=== PATIENT | female | born 1950 | race Caucasian/White ===

== ENCOUNTER → 2023-12-03 13:57 | Outpatient (REF) | payer MEDICARE, OTHER, SELFPAY | LOC: RAD 13:57 | PROVIDERS: ATTENDING PHYSICIAN Surgery; FAMILY PHYSICIAN Internal Medicine | DX: E27.8 Other specified disorders of adrenal gland (principal) | CPT/HCPCS: 74178; Q9967 ==

== ENCOUNTER 2024-09-07 23:59 | Inpatient (IN) | payer MEDICARE, OTHER, SELFPAY ==
[2024-09-07 22:34] VITALS: BP 86/57
--- NOTE | 2024-09-07 22:34 | ED.GENMED ---
History of Present Illness
General
Chief Complaint: Cardiac Symptoms
Time Seen by Provider: 09/07/24 22:32
History of Present Illness
History of Present Illness:
TIME OF INITIAL ENCOUNTER: 10:25 PM
HPI: The patient presents due to severe nausea, EMS states that she had chest discomfort earlier. She had been vomiting. EMS arrived and found evidence of inferior wall STEMI. She was given fluids prior to arrival but blood pressures have been
very low with systolics in the 80s range. 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
EXAM:
GENERAL: Critically ill in appearance
HEENT: Actively vomiting small amounts
CARDIOVASCULAR: No murmurs, normal heart rate, regular rhythm, No chest wall tenderness, poor perfusion
PULMONARY: No respiratory distress, breath sounds are clear and equal
ABDOMEN: Soft with no peritoneal signs, no tenderness
NEUROLOGIC: Fair strength all extremities, no coordination deficits
PSYCHIATRIC: Altered mental status with limited insight and judgment this time
EXTREMITIES: Nontender, no edema, moves all extremities equally
SKIN: Pale
NUMBER AND COMPLEXITY OF PROBLEMS ADDRESSED AT THE ENCOUNTER
� Chronic conditions affecting care: High blood pressure, hyperlipidemia, denies coronary artery disease
� Acute Exacerbation and/or Progression of Chronic Illness: This is an acute problem
� Differential Diagnosis includes: ACS, STEMI
AMOUNT AND/OR COMPLEXITY OF DATA TO BE REVIEWED AND ANALYZED
� I performed an independent evaluation of and my interpretation is:
EKG: EKG shows evidence of inferior wall STEMI
CT:
X-rays:
Laboratory Studies: White count normal, hemoglobin 12.3, bicarb 20, troponin 0.125
Other:
� Review of other/old records: The patient was admitted here in 2022 with appendicitis
� Clinical information was obtained by an independent historian: I spoke to the briefly upon arrival
� Prescriptions/Medications Considered but not given:
� Further testing considered but not performed:
RISK OF COMPLICATIONS AND/OR MORBIDITY OR MORTALITY OF PATIENT MANAGEMENT
� Social determinants of health affecting care: Lives at home
� Discussion with other providers: Discussed case with Dr. Jenkins; considered intubation however cardiology prefers to hold off if possible
� Escalation of care including admission/observation vs risk of discharge considered: The patient was not able to take aspirin prehospital due to active vomiting. I have ordered aspirin rectally. Cardiology, Dr. Jenkins arrived
nearly immediately after patient arrival. The patient was placed on Levophed after no significant treatment after saline. She did attempt to chew Brilinta while in the emergency department. Heparin was also ordered per cardiology. She did arrive
with palpable femoral pulses, systolic blood pressures improving after Levophed.
ANY OTHER UPDATES:
Past History
Past History
ED Past Medical History: HTN
Social History
Personal:
Living: with family
Employment: Not employed
Phy Exam
Physical Exam
Physical Exam:
See HPI
Course
Orders/Labs/Results
Orders:
Orders
09/07/24 22:27
Electrocardiogram (*1) Urgent
Reason for Study: Chest Pain
EKG- Treatment ONCE
09/07/24 22:29
Ondansetron Injectable [Zofran] 4 mg .ROUTE .STK-MED ONE
09/07/24 22:30
Complete Blood Count/With Diff Urgent
Comprehensive Metabolic Panel Urgent
HIV Combo Urgent
Hepatitis B Surface Antigen Urgent
Hepatitis C Antibody Urgent
PTT Urgent
Prothrombin Time Urgent
Troponin I Urgent
09/07/24 22:33
Aspirin 300 mg .ROUTE .STK-MED ONE
09/07/24 22:37
Type+Screen Stat
NORepinephrine 4 MG/250 ML [Levophed] 4 mg in 250 ml .ROUTE .STK-MED
09/07/24 22:38
Fentanyl Citrate/Pf [Sublimaze] See Dose Instructions .ROUTE .STK-MED ONE
Midazolam HCl [Versed] See Dose Instructions .ROUTE .STK-MED ONE
Verapamil Injectable [Isoptin/Verapamil Injection] 5 mg .ROUTE .STK-MED ONE
09/07/24 22:39
Heparin 10,000 units .ROUTE .STK-MED ONE
Heparin 1000 Units/500 ml [Heparin] 1,000 units in 500 ml .ROUTE .STK-MED
Heparin Sodium,Porcine/Ns/Pf [Heparin 2000 Units/1000 ml] 2,000 unit in 1,000 ml .ROUTE .STK-MED
Lidocaine HCl/Pf [Xylocaine-Mpf 1% Vial] 100 mg .ROUTE .STK-MED ONE
Nitroglycerin [Tridil] 1,500 mcg .ROUTE .STK-MED ONE
09/07/24 22:42
ABO2 Stat
BBK Wristband Number:
Associate notified that ABO2 has been ordered: LUIS IN ED
Date: 09/07/24
Time: 22:42
Oil Burner Journeyman ID: [id number]
09/07/24 22:44
NORepinephrine 4 MG/250 ML [Levophed] 4 mg in 250 ml IV NOW
Initial dose in mcg/min, then titrate:: 5
Titrate to keep:: MAP > 65 mmHg
Titrate by mcg/min:: 1-2 mcg/min
Frequency of titrations (minutes):: 5
Maximum dose in ICU in mcg/min:: 30
Maximum dose in IMU in mcg/min:: 8
Maximum dose in IVU in mcg/min:: 4
Begin to taper infusion when:: Remained at goal for 4hrs
Taper by mcg/min:: 1-2 mcg/min
Frequency of taper (minutes) if patient maintains goal:: 30
Taper to off?: Yes
If infusion off & no longer maintaining goal:: Contact Provider
09/07/24 22:45
DOBUTamine 500 MG/D5W 250 ML [Dobutrex 500 mg] 500 mg in 250 ml IV PER PROTOCOL
Initial dose in mcg/kg/min, then titrate:: 10
Titrate to keep:: MAP > 65 mmHg
Titrate by mcg/kg/min:: 0.5 mcg/kg/minute
Frequency of titrations (minutes):: 15
Maximum dose in mcg/kg/min:: 20
Begin to taper infusion when:: Remained at goal for 4hrs
Taper by mcg/kg/min:: 1 mcg/kg/min
Frequency of taper (minutes) if patient maintains goal:: 30
Taper to off?: Yes
If infusion off & no longer maintaining goal:: Contact Provider
09/07/24 23:01
DOBUTamine 500 MG/D5W 250 ML [Dobutrex 500 mg] 500 mg in 250 ml .ROUTE .STK-MED
09/07/24 23:07
Ondansetron Injectable [Zofran] 4 mg .ROUTE .STK-MED ONE
09/07/24 23:15
Ticagrelor [Brilinta] 180 mg .ROUTE .STK-MED ONE
09/07/24 23:16
Heparin 5,000 units .ROUTE .STK-MED ONE
09/07/24 23:19
Eptifibatide [Integrilin] 10 ml .ROUTE .STK-MED
09/07/24 23:20
EPTIFIBATIDE 75 mg/100 mL [Integrilin] 75,000 mcg in 100 ml .ROUTE .STK-MED
09/07/24 23:52
Lidocaine HCl/Pf [Xylocaine-Mpf 1% Vial] 100 mg .ROUTE .STK-MED ONE
Abnormal Lab Results
09/07/24 09/07/24 09/07/24
22:30 23:24 23:40
RBC 4.12 L 10^6/uL
(4.20-5.40)
MCHC 32.2 L g/dL
(33.0-37.0)
Absolute Lymphs (auto) 4.5 H 10^3/uL
(1.2-3.4)
Neutrophils % 35.7 L %
(42.2-75.2)
Lymphocytes % 55.2 H %
(20.5-51.1)
Chloride 111 H mmol/L
(98-107)
Carbon Dioxide 20 L mmol/L
(22-30)
BUN 21 H mg/dl
(7-17)
Glucose 153 H mg/dl
(70-99)
AST 139 H U/L
(14-36)
ALT 71 H U/L
(0-35)
Troponin I 0.125 H* ng/ml
Total Protein 5.9 L g/dl
(6.3-8.2)
Albumin 3.4 L g/dl
(3.5-5.0)
POC ACT Low Range 348 H Seconds 276 H Seconds
(116-155) (116-155)
09/07/24 22:30
09/07/24 22:30
Vital Signs
Initial and Last Documented VS:
Initial Vital Signs
Pulse Resp
42 20
09/07/24 22:31 09/07/24 22:31
Last Documented Vital Signs
Temp Pulse Resp BP Pulse Ox
98.9 F 73 18 117/96 96
09/10/24 03:00 09/10/24 03:00 09/10/24 03:00 09/10/24 03:00 09/10/24 03:00
*Critical Care Note
Total Time (30-74mins, 75-104mins- exclusive of procedures): Not Applicable
ED Attending Note
-
Portions of this chart may have been created with voice recognition software.� Occasional wrong word or��sound alike� substitutions may have occurred due to the inherent limitations of voice recognition software.
Discharge Plan
Departure
Patient Disposition: Admit
Date of Disposition: 09/07/24
Time of Disposition: 22:34
Presentation/result/management discussed w/ accepting MD/: saulo
Discharge Problem:
ST elevation (STEMI) myocardial infarction
Interventions
Interventions:
*ED COVID-19 Vaccine History Last Done: 09/08/24 01:12
*Nursing Disposition Last Done: 09/07/24 23:27
ED- Pulmonary Assessment Last Done: 09/07/24 23:19
ED- Cardiac Assessment Last Done: 09/07/24 23:19
Discharge Date and Time
Discharge Date/Time: 09/07/24 23:19
[2024-09-07 22:40] VITALS: BP 70/52
[2024-09-07 22:42] VITALS: BP 80/58
[2024-09-07 22:45] VITALS: BP 97/64
--- NOTE | 2024-09-07 22:47 | HPS.HSE ---
Family Physician
-
Family Physician: INTERVIEWE UNKNOWN - PT NOT
Chief Complaint
-
Chest pain.
History of Present Illness
74 y/o female with PMHX of tobacco abuse, SVT, chronic back pain for which she receives local injections, diastolic dysfunction and hypertension presenting with abrupt onset chest pressure, nausea and vomiting. The patient is sluggish to respond in
the emergency room and the patient's provides the majority of the history in combination with EMS. The patient was laying in bed, watching TV when she began to moan in pain. Her asked what was hurting her. She could not identify a
specific place, but said she did not feel well. She started to rise from the bed but became unstable and collapsed to the ground. It is unclear if she lost consciousness. EMS was called. Field EKG showed inferoposterior ST elevation. The cath
lab was activated.
In the ER, EKG was repeated demonstrating junctional rhythm with CANDELARIA in inferior leads and deep ST depression in the anteroseptal precordium, consistent with an inferoposterior STEMI. The patient was hypotensive and had vomited. IV fluids were
administered with minimal effect. Norepinephrine was started and was being uptitrated. The patient complained of 'chest pressure' in the ER.
The patient was last hospitalizes in 01/2023 with acute appendicitis with rupture, undergoing appendectomy complicated by SVT upon extubation. The SVT was terminated with adenosine. Home nebivolol was increased to 5 mg daily.
The patient's does not have an updated medication list, but knows that she takes losartan and has been prescribed HCTZ but does not take it due to frequent urination.
The patient was given ASA 300 mg NE, heparin 4000 units IV and asked to chew ticagrelor 180 mg. CBC is unremarkable. Coagulation panel and BMP pending.
DATA:
TTE, 02/08/2023:
CONCLUSIONS
Normal left ventricular size and systolic function. No regional wall motion
abnormalities are seen. LV ejection fraction is 55-60% by Coulter's method of
discs. Mild concentric left ventricular hypertrophy. [place] EPIQ left
ventricular global longitudinal strain is -16.9%. Stage II diastolic
dysfunction suggestive of abnormal relaxation and increased filling pressures.
Normal right ventricular size and function.
Indexed LA volume is mildly abnormal (35-41 mL/m2).
Mild mitral regurgitation.
Moderate tricuspid regurgitation. Estimated pulmonary artery pressure of 45-50
mmHg assuming a right atrial pressure of 3 mmHg.
No prior study available for comparison.
Medical History
Past Medical History
Past Medical History: Reports Arrhythmia (PSVT after appendectomy.) and HTN
Past Surgical History: Reports Appendectomy
Social History
Unable to obtain full social history at this time due to: Acuity
Tobacco: Smoker (1.5 PPD)
Alcohol: Former (Quit 5 years ago.)
Drug: None
Personal:
Living: With Family
Employment: Retired
Family History
Family History: Not pertinent
Allergies / Home Medications
Allergies reflects when Allergies were last updated in [facility].
Home Medications with original date entered in [facility]
Allergy/Medication List:
Home Medications:
Nebivolol 5 mg daily.
Losartan 25 mg daily.
HCTZ 12.5 mg daily (not taking).
Allergies:
NKDA.
Review of Systems
-
Unable to obtain full review of systems at this time due to: Acuity
History Source: Family and Ambulance Crew
Constitutional: Reports See HPI
EENT: Reports See HPI
Respiratory: Reports See HPI
Cardiac: Reports Chest Pain and Diaphoresis
Abdomen/GI: Reports Nausea and Vomiting
: Reports See HPI
Musculoskeletal: Reports See HPI
Skin: Reports No Symptoms
Neurological: Reports No Symptoms
Endocrine: Reports No Symptoms
Physical Exam
Physical Exam
General: Well Developed, Well Nourished and Appears in Distress
HEENT: NormoCephalic, Anicteric, Moist mucous membranes, Atraumatic, Good Dentition, PERRLA, [place] Conjunctivae, Nose Appears Normal, Ears Appear Normal and Neck Nontender
Respiratory: Clear and Non Labored Respirations
Cardiac: S1/S2, Regular Rhythm and Bradycardia
Breast: Deferred by me
GI: Soft, Non Tender, Non Distended and Normal Bowel Sounds
Rectal: Deferred by Provider
Genito-urinary: Deferred by me
Musculoskeletal: No Clubbing, No Cyanosis and No Edema
Skin: Other (Diaphoretic.)
Neuro: Awake, Alert and Oriented (Difficult to assess.)
Hematologic/Lymphatic: No Lymphadenopathy
Data Reviewed
-
Medical Tests (Nuc Med, Echo, EKG etc): Image Personally Visualized and interpreted, Report Reviewed by me, Discussed with Physician and Discussed with Patient
Lab Data: Labs Reviewed by me
Old Records: Reviewed
Impression/Plan
-
Impression/Plan: 74 y/o female with HTN, PSVT, chronic hip/back pain, and ongoing tobacco abuse presenting with inferoposterior STEMI complicated by junctional escape rhythm.
#STEMI
-Acute.
-STEMI plus junctional escape/complete heart block is a poor prognostic sign.
-ASA/Ticagrelor/heparin given in ER.
-Emergent cardiac catheterization/PCI.
-Situation reviewed with the patient's . Consent is signed and on the chart.
-Further instructions to follow.
#Complete heart block
-Presumably acute, due to STEMI.
-Likely placement of TPM.
-Dobutamine will assist with bradycardia.
-Re-evaluate heart rhythm post PCI.
#PSVT
-Chronic.
-Post anesthesia.
-Hold home nebivolol in the setting of junctional heart rhythm.
#Tobacco abuse
-Chronic.
-Encouraged to quit.
Critical Care Time = 55 minutes.
[2024-09-07 22:50] VITALS: BP 101/78
[2024-09-07 22:50] LABS: Hematocrit 38.2 % (37.0-47.0); Hemoglobin 12.3 g/dL (12.0-16.0); Mean Corp Hgb Conc. 32.2 g/dL (33.0-37.0); Mean Corpuscular Hgb 29.9 pg (27.0-31.0); Mean Corpuscular Volume 92.7 fL (81.0-99.0); Mean Platelet Volume 9.6 fL (7.4-10.4); Platelet Count 264 10^3/uL (130-400); Red Blood Cell Count 4.12 10^6/uL (4.20-5.40); Red Cell Dist. Width 13.3 % (11.5-14.5); White Blood Cell Count 8.1 10^3/uL (4.8-10.8)
[2024-09-07 22:53] LABS: INR 0.94; PT 12.9 Sec (11.4-14.6)
--- NOTE | 2024-09-07 22:53 | EDRN ---
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
[2024-09-07 22:54] LABS: APTT 26.2 Sec (23.4-35.0)
[2024-09-07 23:03] LABS: ALT (SGPT) 71 U/L (0-35); AST (SGOT) 139 U/L (14-36); Albumin 3.4 g/dl (3.5-5.0); Alkaline Phosphatase 100 U/L (38-126); Blood Urea Nitrogen 21 mg/dl (7-17); Calcium 8.9 mg/dl (8.4-10.2); Carbon Dioxide 20 mmol/L (22-30); Chloride 111 mmol/L (98-107); Glucose 153 mg/dl (70-99); Potassium 3.9 mmol/L (3.5-5.1); Sodium 143 mmol/L (135-145); Total Bilirubin 0.7 mg/dl (0.2-1.3); Total Protein 5.9 g/dl (6.3-8.2); eGFR > 60.00
[2024-09-07 23:11] LABS: Troponin I 0.125 ng/ml
[2024-09-07 23:16] LABS: % Basophils 1.2 % (0-2); % Eosinophils 2.7 % (0-6); % Immature Granulocytes 0.2 % (0-0.5); % Lymphocytes 55.2 % (20.5-51.1); % Neutrophils 35.7 % (42.2-75.2); Absolute Basophils 0.1 10^3/uL (0-0.2); Absolute Eosinophils 0.2 10^3/uL (0-0.7); Absolute Lymphocytes 4.5 10^3/uL (1.2-3.4); Absolute Monocytes 0.4 10^3/uL (0.1-0.6); Absolute Neutrophils 2.9 10^3/uL (1.4-6.5); Nucleated Red Blood Cells % 0 %
[2024-09-07 23:19] VITALS: BP 86/57; BMI 22.0
[2024-09-07 23:34] LABS: ACT-LR - POC 348 Seconds (116-155)
[2024-09-07 23:46] LABS: ACT-LR - POC 276 Seconds (116-155)
[2024-09-08] VITALS (41 sets, daily range): BP systolic 95–163; BP diastolic 66–125; BMI 22.0; BMI 22.5
--- NOTE | 2024-09-08 00:15 | ITS.CL.ANGIO ---
Jewel Stringer - Angioplasty
Angioplasty
Procedure Report:
CARDIAC CATHETERIZATION REPORT
Date of Procedure: 09/07/2024
Referring: Raúl Bains D.O.
INDICATION: Inferoposterior ST elevation myocardial infarction complicated by junctional escape.
PROCEDURE:
1. Temporary pacemaker placement.
2. Left heart catheterization.
3. Coronary angiography.
4. Successful aspiration thrombectomy of the mid right coronary artery.
5. Successful PCI of the mid right coronary artery.
ACCESS:
6 Micronesian right common femoral artery using modified Seldinger technique with a micropuncture kit under ultrasound guidance.
6 Micronesian right common femoral vein using a modified Seldinger technique with a micropuncture kit under ultrasound guidance.
CATHETERS:
1. 5 Micronesian JR4.
2. 5 Micronesian JL 3.5.
3. 6 Micronesian temporary pacemaker wire.
4. 6 Micronesian JR4 guiding catheter.
HEMODYNAMIC DATA
Weight (kg): 55.3
AO (s/d/x, mmHg): 153/23
LV (s/x mmHg): 153/88/114
LEFT VENTRICULOGRAPHY: Not performed.
CORONARY ANGIOGRAPHY
Dominance: Right.
Left Main: Short, bifurcating vessel. There is no coronary artery disease.
LAD: Normal size vessel giving rise to 2 diagonals. The distal vessel severely tortuous. There is no coronary artery disease.
Ramus: Congenitally absent.
Circumflex: Normal size, nondominant vessel giving rise to 2 relatively small obtuse marginals. There are minor luminal irregularities in the body of the circumflex and marginals.
RCA: Large size, dominant vessel with a large posterolateral arcade. The vessel is acutely 100% occluded in the mid vessel.
INTERVENTION(S)
1. Insertion of a temporary pacemaker.
2. Successful aspiration thrombectomy of the mid RCA, restoring CROW-3 flow.
3. Successful PCI of the acute, 100% mid RCA occlusion (Medtronic [place] 3.5 x 38 TORIBIO, postdilated with a 3.5 NC balloon) with reduction in stenosis to 0%, maintaining CROW-3 flow.
Narrative:
The patient's right inguinal area was prepped and draped and standard sterile fashion. The right inguinal crease was anesthetized with 1% lidocaine. The common femoral vein was punctured with a micropuncture needle under ultrasound guidance using
a modified Seldinger technique. Fluoroscopy confirmed satisfactory sheath position. The site was serially dilated and an 6 Micronesian sheath was inserted then sutured in place. A temporary pacemaker wire was inserted through the 6 Micronesian sheath. The
tip of the pacemaker was advanced into the apex of the right ventricle. The pacemaker was turned on at 100 bpm at 20 mA. The current was serially decreased showing good capture at 1 mA. The current was increased to 20 mA and the rate decreased to
VVI 80 bpm.
On access of the right common femoral artery, ultrasound demonstrated significant plaquing in the posterior wall of the GLUCOSE AND SYRUP WEIGHER. The artery was successfully accessed using the micropuncture needle. Right common femoral artery angiography confirmed
significant PAD in the external iliac artery. The micropuncture sheath was exchanged for a standard 6 Micronesian sheath. Unfortunately, the standard J-wire would not traverse the iliac system. A Glidewire was advanced into the descending aorta with
relative ease, allowing the diagnostic JR4 catheter access to the descending aorta. The Glidewire was exchanged for the standard J-wire and the JR4 catheter was removed. The standard 6 Micronesian sheath was withdrawn and a 23 cm 6 Micronesian sheath was
advanced over the J-wire to bypass any PAD in the iliac system. Diagnostic angiography was then performed per protocol.
After diagnostic angiography, the decision was made to proceed with percutaneous coronary intervention. The diagnostic catheter was removed over a wire and a 6Fr JR4 guiding catheter was advanced to the aortic root and seated in the right coronary
artery. Additional heparin was given and a Power Turn Flex wire was advanced into the distal RPLB.
An GANESH aspiration catheter was advanced over the power turn flex wire and into the RCA. The catheter was advanced to the mid RCA but would not progress any further. The syringe was turned to suction and several passes were made within the
proximal and mid RCA. The GANESH catheter was removed under suction and flushed showing evidence of white thrombus in the basket. Repeat angiography showed druze of CROW-3 flow in the right coronary artery. This also identified the ruptured
plaque lesion in the mid RCA
The mid RCA lesion was predilated with a 2.0 x 12 semi-compliant balloon to 12 alfie. This demonstrated good release, but we felt that further predilation was warranted. A 3.0 x 20 semicompliant balloon was advanced and the mid RCA was predilated to
12 alfie. The semi-compliant balloon was removed and a Medtronic [place] 3.5 x 38 drug-eluting stent was advanced. The stent was deployed at 12 atmospheres. The stent balloon was removed.
Post stent angiography showed a mild haziness distal to the stented artery. The artery was somewhat tortuous so there was concern for edge dissection versus partial geographic miss versus wire bleeding of the artery. The soft part of the wire was
pulled back into the crux of the vessel and angiography was performed. This demonstrated that the artery had resumed its tortuous state and the haziness was no longer observed, confirming that the lesion was, in fact, bleeding from wire bias. The
wire was readvanced.
A 3.5 x 20 noncompliant balloon was advanced into the stent and the distal stent was postdilated to 15 atmospheres. The mid stent was postdilated to 16 alfie. The proximal stent was postdilated to 18 alfie. The noncompliant balloon was withdrawn.
Angiography was performed in orthogonal views, confirming good stent expansion and an excellent angiographic result. The coronary wire was withdrawn and the guide was disengaged from the artery. The catheter was removed over a standard J-wire.
Given the patient's hypotension and need for vasopressor agents as well as her chronotropic instability, the decision was made to suture both the femoral sheaths in place to serve as pressure monitors and access for blood draws as well as to
maintain the temporary pacemaker wire position.
Closure Device: None, both the arterial and venous sheaths were sutured in place.
Radiation (mGy): 468.71
DAP (cm2.Gy): 38.8138
Fluoroscopy time (minutes): 9.7
Sedation time (minutes): 0
CONCLUSIONS
1. Inferoposterior ST elevation myocardial infarction with complete heart block manifesting as a junctional escape rhythm.
2. Right dominant circulation with luminal irregularities in the nondominant circumflex and an acute, 100% occlusion of the mid RCA, status post aspiration thrombectomy and successful PCI (Medtronic [place] 3.5 x 38 TORIBIO, postdilated with a
3.5 NC balloon) with reduction in stenosis to 0%, restoring CROW-3 flow.
3. Moderately elevated filling pressures (LVEDP = 23 mmHg at 55.3 kg).
4. At least moderate peripheral arterial disease seen on right common femoral artery ultrasound and angiography.
RECOMMENDATIONS:
1. Expectant management after cardiac catheterization via right common femoral approach.
2. Limited weight bearing for one week.
3. Maintain arterial and venous access for hemodynamic monitoring and chronotropic support if indicated.
4. Maintain eptifibatide drip at 2 mcg/kg/min for 18 hours.
5. Dual antiplatelet therapy with aspirin and ticagrelor for at least 12 months, followed by aspirin indefinitely.
6. Slow wean of norepinephrine and dobutamine to maintain MAP >65 mmHg.
7. Aggressive secondary prevention with high-dose, high potency statin.
8. Echocardiogram ordered and pending.
9. Reevaluation of heart rhythm post PCI.
10. Guideline directed medical therapy as hemodynamics and heart rhythm will permit.
11. Referral to cardiac rehab.
Copy to: Rashad Abreu M.D., Raúl Bains D.O.
[place], , FACC, FACP
--- NOTE | 2024-09-08 00:30 | PTCARENOTE ---
Monitor handoff not completed on worklist because pt came over on the cardiac cath tech zoll monitor. Pt hooked up to our CVICU X3 monitor upon arrival to room.
--- NOTE | 2024-09-08 00:45 | PTCARENOTE ---
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 Pt AAOx3. Following commands appropriately. Pt A-fib on the tele monitor. HR 100s. BP 150-70s/80s. Temporary pacemaker set to VVI 80/20. Palpable pulses throughout. Pt on 3 L NC. POX 96-100%. Lung sounds
audible throughout. Deep breathing encouraged. Abdomen soft/nontender. Hypoactive BS. Pt c/o nausea - see MAR. No emesis at this time. Right fem venous sheath w/ temp pacer C/D/I. Right fem arterial sheath C/D/I and transduced to a-line cable on the
monitor. Right DP pulse palpable. Right LE warm & no edema present. Right AC 20 gauge and Left AC 20 gauge C/D/I. Upon arrival, Levo/Integrilin/Dobutamine infusing. See worklist for full nursing assessment and interventions.
[2024-09-08] MEDS: LEVOPHED 250 IV (00:59)
[2024-09-08] MEDS: NSS 500 VEN SHEATH (01:00)
[2024-09-08] MEDS: TIGAN 200 MG IM (01:11)
[2024-09-08] MEDS: PERCOCET 5/325 1 TABLET PO (01:54)
[2024-09-08 02:20] LABS: Hepatitis B Surface Antigen Negative (Negative)
[2024-09-08 02:29] LABS: HIV Combo Negative (Negative)
[2024-09-08 02:37] LABS: Hepatitis C Antibody Negative (Negative)
--- NOTE | 2024-09-08 03:28 | PTCARENOTE ---
Bloody drainage noticed on Right Fem sheath dressing. CTPA Anthony notified and at bedside. Dressing not changed at this time. Pacer backup rate lowered to 70 by CTPA. Pt instructed to keep leg straight.
[2024-09-08] MEDS: APRESOLINE 5 MG IV (04:41)
[2024-09-08 05:05] LABS: Hematocrit 34.1 % (37.0-47.0); Hemoglobin 11.2 g/dL (12.0-16.0); Mean Corp Hgb Conc. 32.8 g/dL (33.0-37.0); Mean Corpuscular Hgb 29.9 pg (27.0-31.0); Mean Corpuscular Volume 91.2 fL (81.0-99.0); Mean Platelet Volume 9.7 fL (7.4-10.4); Platelet Count 238 10^3/uL (130-400); Red Blood Cell Count 3.74 10^6/uL (4.20-5.40); Red Cell Dist. Width 13.3 % (11.5-14.5)
--- NOTE | 2024-09-08 05:05 | PTCARENOTE ---
Pt reassessed. Pt between SR/ accelerated junctional on the tele monitor w/ occasional V-pacing. Temporary pacer set to 70/20/0.8. BP 140s-160s/80s. 5 mg IV hydralazine administered as ordered for sustained high BPs. Last cuff BP 102/70. Pt on 3 L
NC. POX 99-100%. Right venous sheath and right arterial sheath intact. Bloody drainage on right groin dressing. CTPA aware. Site is soft. No hematoma. Right DP pulse palpable. Right LE warm. Right fem a-line leveled, zeroed, and flushed. Integrilin
infusing as ordered. Pt educated on bedrest and importance of keeping right leg straight. Call anderson within reach.
[2024-09-08 05:30] LABS: Blood Urea Nitrogen 18 mg/dl (7-17); Calcium 8.7 mg/dl (8.4-10.2); Carbon Dioxide 20 mmol/L (22-30); Chloride 109 mmol/L (98-107); Estimated Creatinine Clearance 66 ml/min; Glucose 145 mg/dl (70-99); Sodium 138 mmol/L (135-145); eGFR > 60.00
[2024-09-08] MEDS: INTEGRILIN 100 IV (08:27)
[2024-09-08] MEDS: BRILINTA 90 MG PO ×2 (08:30→20:46)
[2024-09-08] MEDS: LOW STRENGTH ASPIRIN 81 MG PO (08:30)
--- NOTE | 2024-09-08 08:51 | PTCARENOTE ---
assumed care of pt from previous shift RN, sinus rhythm on tele, + peripheral pulses, pt denies CP or SOB, lungs diminished. +bs, denies nausea, voids spontaneously, purewick in place. Right FVS w pacing wire in place, RFA maintained to pressure
bag, positional at times. PIV x2 flush easily. Integrilin infusing as ordered until 1800pm. Call anderson system and safety precautions reviewed w the pt and questions encouraged. Family updated.
--- NOTE | 2024-09-08 09:43 | W.PN.CARDCBS ---
Addendum entered and electronically signed by Deng Ford MD 09/08/24 11:56:
74-year-old woman with history of SVT admitted last night with inferior posterior MA complicated by junctional rhythm and inotropic dependence with temporary pacing.
PMH: SVT, hypertension, hypercholesterolemia
PSH: Appendectomy
SH: History of tobacco abuse, ongoing, negative alcohol, , retired
Allergies: None, though statin intolerant
Outpatient meds: Nebivolol, Zetia
Current meds: Dobutamine, Integrilin, aspirin 81 mg a day, ticagrelor, atorvastatin 80 mg daily, norepinephrine
128/81, pulse 86, respiratory 16, afebrile, ecchymoses on face following fall, no acute distress, lungs are clear, occasional extrasystoles, heart rate 80s, no obvious murmurs abdomen benign, pulses diminished in feet but perfusion is good, small
amount of bleeding around catheter insertion right femoral, threshold for pacer is 7 mA, sensing not tested, no failure to sense on monitor, no VT, neuro nonfocal
EKG today: Junctional or low atrial rhythm, inferior T wave inversions with preservation of R wave, lateral ST segment depression, RSR prime hemoglobin 11. 2, white count 11, BUN/creatinine 18 and 0.6, potassium 4, AST 139, ALT 71, peak troponin
21.3
Impression:
Admitted with acute MA 09/07/24
CAD s/p 3.5 mm [place] TORIBIO mid RCA 09/07/24
Cardiogenic shock
on Levophed and Dobutamine post-cath, weaned off 09/08/24Complete heart block 09/07/24, back in NSR 09/08/24
s/p temp wire placement 09/07/24Paroxysmal Afib
h/o SVT at time of extubation in 2022
HTN
HLD with prior statin/Zetia intolerance
anxiety
Smoker
Hyperglycemia and prediabetes
Plan:
Overall doing relatively well following RCA distribution MA complicated by heart block and hypotension from RV infarction, with improvement in RV function and no evidence of hemodynamic embarrassment at present and no evidence of heart block at
present.
Appreciate efforts of Dr. Louis.
Will await chest x-ray and echo. Chest x-ray to assess position of pacing wire.
Integrilin to continue until 6 PM. Will remove sheaths in a.m.
Will uptitrate GDMT as hemodynamics permits.
Patient will likely need PCS K9 inhibitor. Intolerant of statins in the past.
Original Note:
Today's Communication / Plan
-
Possibly pulling temp wire today and sheaths later today vs tomorrow
Integrilin infusing until 1800 today
Afib post-PCI, watch for recurrence, consider switching to heparin gtt or DOAC once Integrilin done
Off Dobut and Levo, consider adding low dose Lopressor 12.5 mg q 6 hours
Impression / Plan
-
Primary Coater Smoking Pipe: unknown, previously evaluated in [place]
PCP: Dr. Marty Abreu [phone]
Impression:
Admitted with acute MA 09/07/24
CAD s/p 3.5 mm Cruz TORIBIO mid RCA 09/07/24
Cardiogenic shock
on Levophed and Dobutamine post-cath, weaned off 09/08/24
Complete heart block 09/07/24, back in NSR 09/08/24
s/p temp wire placement 09/07/24
Paroxysmal Afib
h/o SVT at time of extubation in 2022
HTN
HLD with prior statin/Zetia intolerance
anxiety
Smoker
Hyperglycemia and prediabetes
Echo 02/08/23: EF 55%, mild MR, mod TR, PA 45-50
Echo 09/08/24: Study pending
Plan:
-Patient came to [facility] via EMS with chest pain and was admitted with acute IWMI and CHB. Patient was taken urgently to the cath lab tech and had temp wire placed and then cath which showed a 100% mid RCA occlusion that was treated with thrombectomy then
PTCA and 3.5 mm TORIBIO. Patient with cardiogenic shock and was on Levo and Dobut overnight, but able to be weaned off 09/08/24 AM. Patient is now in NSR as well.
-Patient previously seen by DCA in 2022 when she had SVT after extubation at time of appendectomy so DCA taking over her care and orders placed in [facility].
-Tele reviewed by me, appears to be in NSR. Temp wire remains in place. Will investigate the possibility of removing wore 09/08/24.
-Integrilin infusion started at 0000 and will be done at 1800 on 09/08/24.
-Right groin sheaths in place, will look to remove 09/08/24 vs 09/09/24.
-Bedside echo planned for 09/08/24 AM. EF was 55% in 2022.
-Cardiogenic shock on admission has improved and patient is now off of Dobut and Levo.
-Patient was taking nebivolol 5 mg daily prior to admission. Consider transition to Lopressor 12.5 mg q 6 hours while temp wire is still in place.
-Consider adding lisinopril pending echo report, Cre is stable at 0.8
-New to aspirin and Brilinta, will ask CM to check on cost.
-Integrilin infusion ends at 1800 on 09/08/24.
-Patient with Afib in RVR post-PCI. Consider starting Heparin gtt vs direct transition to Eliquis post-sheath removal and at the end of Integrilin infusion.
-If starting NOAC then will need to consider changing DAPT to Plavix.
-HgbA1c 6%, she has prediabetes. Will consult DM RETURN CLERK and dietary for low carb diet instructions.
-CVE order placed by me. New to atorvastatin 80 mg daily. Outpatient dose of Zetia 10 mg daily has been stopped for now.
-Trend Troponin, up to 21.3 on 09/08/24 AM
-Cardiac rehab consulted
-Patient tells me that she lives in [place] and also has a home locally that she lives in with her ex-, but they still live together. Sounds like additional family is on their way and will be happy to update any family in room throughout the
day.
Progress Note - Coater Smoking Pipe
Subjective
Date of Service: September 08, 2024
Denies chest pain
Objective
Labs:
09/08/24 04:51
09/08/24 04:51
Labs
Hgb 11.2 g/dL (12.0-16.0) L 09/08/24 04:51
Hct 34.1 % (37.0-47.0) L 09/08/24 04:51
Plt Count 238 10^3/uL (130-400) 09/08/24 04:51
PT 12.9 Sec (11.4-14.6) 09/07/24 22:30
INR 0.94 09/07/24 22:30
APTT 26.2 Sec (23.4-35.0) 09/07/24 22:30
Sodium 138 mmol/L (135-145) 09/08/24 04:51
Potassium 4.0 mmol/L (3.5-5.1) 09/08/24 04:51
BUN 18 mg/dl (7-17) H 09/08/24 04:51
Creatinine 0.6 mg/dL (0.6-1.0) 09/08/24 04:51
Glucose 145 mg/dl (70-99) H 09/08/24 04:51
Troponins
09/07/24 09/08/24 09/08/24
22:30 01:16 04:51
Troponin I 0.125 H* 2.190 H* D 21.300 H* D
Vital Signs and I&O:
Vital Signs
Temp Pulse Resp BP Pulse Ox
98.2 F 86 16 128/81 100
09/08/24 08:00 09/08/24 08:00 09/08/24 08:00 09/08/24 08:00 09/08/24 08:00
Vital Signs
Temp Pulse Resp BP Pulse Ox
98.2 F 86 16 128/81 100
09/08/24 08:00 09/08/24 08:00 09/08/24 08:00 09/08/24 08:00 09/08/24 08:00
Intake & Output
09/06/24 09/07/24 09/08/24 09/09/24
06:59 06:59 06:59 06:59
Intake Total 240.6 / 279.6 78 / 78
Output Total 200 / 200
Balance 240.6 / 279.6 -122 / -122
Physical Exam
Physical Exam
GEN: NAD. AAO to person, place and situation, knows she is in a hospital in [place] and that she had an MA
HEENT: EOMI, MMM
LUNGS: No audible wheeze
CV: SR on tele
ABD: ND
EXT: No edema
NEURO: Gross non-focal
SKIN: No rash
--- NOTE | 2024-09-08 11:50 | PTCARENOTE ---
VSS, integrilin maintained, RFV and RFA sheaths maintained w pacing wire floated. Family at bedside.
[2024-09-08 12:45] LABS: HDL Cholesterol 57 mg/dl; LDL Cholesterol, Calculated 142 mg/dl; Total Cholesterol 218 mg/dl (50-199); Triglyceride 98 mg/dl (10-149); Very Low Density Lipoprotein 19 mg/dl (0-30)
--- NOTE | 2024-09-08 14:26 | W.PN.UPDATE ---
Update Note
Progress Note Update
Talked with patient's and daughter in the room. Patient intermittently confused, no focal signs, no change in vision or lateralizing weakness. No FAIRCHILD. Family reports that patient is very sharp as an outpatient, but has been intermittently
confused here, she forgot her middle name as an example, but then remembered she has an epidural injection scheduled for tomorrow. Check non-contrast CT head. Will work to get sheaths removed to make transport easier. Reviewed hospital course
overnight and plans for eventual medical therapy and cardiac rehab. Offered nicotine patch and patient declined, smokes 1.5 ppd at home. 31 min in face to face, care coordination and chart prep.
[2024-09-08] MEDS: TYLENOL PO (15:00)
[2024-09-08 16:35] LABS: ACT-LR - POC 124 Seconds (116-155)
[2024-09-08] MEDS: NSS VEN SHEATH (16:52)
--- NOTE | 2024-09-08 16:57 | PTCARENOTE ---
pt w intermittent confusion, attempting to get OOB, refusing to keep leg straight. Family at bedside and seems to be escalating pt's agitation. Asked family to leave. [facility]iology at bedside[facility]. Pacing wire removed by
[place]. Transported pt for CT of the head. Originally attempted medsitter, however, pt was made a 1:1 to ensure saftey with sheaths and pacing wire. Plan of care reviewed w the pt's family. Emotional support provided.
--- NOTE | 2024-09-08 17:11 | CM ---
spoke with pt in room, answered questions. pt is prev indep, lives with him in a 2 story home with 3 steps to enter. she is prev indep.. plan is home when medically stable. cm following for dc planning needs.
--- NOTE | 2024-09-08 17:13 | CM ---
priced brilinta with pts [facility]- her cost is $103.44/month. pt not able to discuss affordability at this time, cm to speak to family in am.
--- NOTE | 2024-09-08 17:27 | PTCARENOTE ---
sheaths removed by CCL.
[2024-09-08] MEDS: TYLENOL 650 MG PO (17:48)
[2024-09-08] MEDS: LIPITOR 80 MG PO (17:53)
--- NOTE | 2024-09-08 20:48 | PTCARENOTE ---
Assumed care of pt from dayshift RN. Walking rounds completed. Pt oriented to person and time. Pt is confused on where she is. Pt believes she is in her home. Pt is impulsive and forgetful. Pt having trouble following commands and laying flat s/p
right groin sheath removal. Pt is SR on the tele monitor w/ PACs. HR 80s. BP 95/80. MAP 84. Palpable pulses throughout. No edema noted. Pt on RA. POX 96%. Lung sounds diminished. Deep breathing encouraged. Abdomen soft/nontender. +BS. Pt voiding
yellow urine w/ pure wick catheter in place. Right groin sheath site intact/soft. No hematoma at this time. Right/Left AC 20 gauge C/D/I. Pt on bedrest s/p right groin sheath removal. Pt informed on importance of keeping right leg flat. Pt currently
a 1 to 1 w/ nurse in the room to redirect pt. See worklist for full nursing assessment and interventions.
--- NOTE | 2024-09-08 22:31 | W.PN.UPDATE ---
Update Note
Progress Note Update
Cardiology update note:
-Called by nurse to assess above patient
-Pt noted to be confused (alert and oriented x 2, not oriented to place), agitated and combative
-Tells me she smokes and has a craving for cigarettes
-Will give Ativan 0.5 mg IV now, HR NSR @ 99 bpm, BP 133/72, O2 sats 97% on RA. Will place on 2L NC overnight after Ativan
-Will cont. to closely monitor, Dr. Ford updated
[2024-09-08] MEDS: ATIVAN 0.5 MG IV (22:36)
[2024-09-08] MEDS: NSS (PRESERVATIVE FREE) 0.25 ML IV (22:37)
[2024-09-08] MEDS: HALDOL 1 MG IV (23:07)
--- NOTE | 2024-09-08 23:18 | PTCARENOTE ---
Pt w/ increased restlessness and confusion. Pt believes she is in her home but is oriented to person and time. Pt sinus rhythm to sinus tach. HR 90-120s. BPs 140s-150s/ 70-90s. Respirations 20-30. Pt difficult to redirect. Cards and CTPA aware.
Ativan and Haloperidol ordered - see DEC. Pt placed on 2 L NC. POX 98%. Right fem sheath site C/D/I. No hematoma.
[2024-09-09] VITALS (8 sets, daily range): BP systolic 124–160; BP diastolic 68–93; BMI 21.5
--- NOTE | 2024-09-09 04:13 | PTCARENOTE ---
Pt SR on the tele monitor. HR 60-80s. Pt on 2 L NC. POX 98-100%. Pt sleeping in bed at this time. Right groin sheath site C/D/I. No hematoma.
[2024-09-09 06:32] LABS: Hematocrit 32.5 % (37.0-47.0); Hemoglobin 10.5 g/dL (12.0-16.0); Mean Corp Hgb Conc. 32.3 g/dL (33.0-37.0); Mean Corpuscular Hgb 29.7 pg (27.0-31.0); Mean Corpuscular Volume 92.1 fL (81.0-99.0); Mean Platelet Volume 10.1 fL (7.4-10.4); Platelet Count 234 10^3/uL (130-400); Red Blood Cell Count 3.53 10^6/uL (4.20-5.40); Red Cell Dist. Width 13.6 % (11.5-14.5); White Blood Cell Count 12.4 10^3/uL (4.8-10.8)
--- NOTE | 2024-09-09 06:37 | PTCARENOTE ---
Pt SR to sinus tach on tele monitor. HR 80-100s. BP 150/93. Right groin sheath site C/D/I. No hematoma at this time. Pt is oriented to person and time however still believes she is in her home and not the hospital. Labs drawn and sent. EKG obtained.
Bed weight obtained. Pt turned and repositioned in bed.
[2024-09-09 07:00] LABS: ALT (SGPT) 130 U/L (0-35); AST (SGOT) 218 U/L (14-36); Albumin 3.7 g/dl (3.5-5.0); Alkaline Phosphatase 109 U/L (38-126); Blood Urea Nitrogen 18 mg/dl (7-17); Calcium 9.5 mg/dl (8.4-10.2); Carbon Dioxide 25 mmol/L (22-30); Chloride 107 mmol/L (98-107); Direct Bilirubin 0.1 mg/dl (0.0-0.4); Estimated Creatinine Clearance 66 ml/min; GGTP 102 U/L (12-43); Glucose 129 mg/dl (70-99); Magnesium 1.7 mg/dl (1.6-2.3); Potassium 3.9 mmol/L (3.5-5.1); Sodium 141 mmol/L (135-145); Total Bilirubin 1.8 mg/dl (0.2-1.3); Total Protein 6.1 g/dl (6.3-8.2); eGFR > 60.00
--- NOTE | 2024-09-09 07:30 | PTCARENOTE ---
Pt received from outgoing RN, pt resting in bed, RN was given report the pt had a restless night, confused throughout the night, impulsive and require continuos monitoring and redirecting for pt safety. Pt at change of shift resting in bed, NSR,
vss, RA, Rt Groin dressing cdi, +pulses on RLE DP. RN will continue to monitor pt safety.
[2024-09-09] MEDS: MAGNESIUM SULFATE 100 IV (08:28)
[2024-09-09] MEDS: LOW STRENGTH ASPIRIN 81 MG PO (08:29)
[2024-09-09] MEDS: BRILINTA 90 MG PO ×2 (08:29→19:46)
--- NOTE | 2024-09-09 09:03 | W.PN.CARDCBS ---
Addendum entered and electronically signed by Deng Ford MD 09/09/24 19:00:
74-year-old woman with history of SVT admitted last night with inferior posterior OR complicated by junctional rhythm and inotropic dependence with temporary pacing.
Sheathes discontinued last night, major issue at present is confusion, although at present she is oriented to place which was not the case previously. She has pain in her back and weakness in her legs. Gait was shuffling, no complaints of upper
extremity weakness. She had been scheduled for an epidural injection this week. She has apparently seen a all purpose clerk and braces had been recommended for her legs.
PMH: SVT, hypertension, hypercholesterolemia
PSH: Appendectomy
SH: History of tobacco abuse, ongoing, negative alcohol, , retired
Allergies: None, though statin intolerant
Outpatient meds: Nebivolol, Zetia
Current medications: Aspirin 81 mg a day, Brilinta 90 mg twice daily, atorvastatin 80 mg daily
136/68, pulse 82, respirate 18, afebrile, conversant, no acute distress, head neck exam notable for ecchymoses on chin, lungs are relatively clear, she has an MR murmur and possibly a TR murmur, JVD is okay abdomen is benign no edema pulses intact,
right groin intact, neuro is notable for leg weakness bilaterally, upper extremities intact
Echo: EF 64%, moderate MR, mild AI, moderate to severe TR, pulmonary artery pressure 30-35 mmHg
Peak troponin was 35.7, hemoglobin is 10.5 BUN and creatinine are 18 and 0.6
EKG today sinus tachycardia, inferior T wave inversions, anterior ST depression probably consistent with posterior myocardial infarction large R wave in V2
Plan:
From the standpoint of inferior posterior OR, she is actually doing fairly well.
Her LVEF is preserved. I suspect her mitral regurgitation and tricuspid regurgitation are related to her RCA infarction and may well improve over time.
She is relatively tachycardic without evidence of ventricular tachycardia. Add beta-miguel no evidence of heart block. Temporary pacing wire has been discontinued.
She has a history of SVT in 2022 but no documented A-fib. We will need to observe closely for recurrences of atrial fibrillation.
She does not require pressor or inotropic support
Suspect she has a toxic metabolic encephalopathy possibly with underlying cognitive impairment. This seems to be improving.
Suspect she has spinal stenosis accounting for her leg weakness. No real upper extremity weakness. Consult neuro.
Will ask hospitalist to manage noncardiac issues.
Original Note:
Today's Communication / Plan
-
continue asa, brilinta, lipitor
follow on tele. may need OP laboratory monitor
add toprol
follow LFTs
neurology consult
transfer to hospitalist service given confusion/agitation
ok for transfer to IVU
Impression / Plan
-
Primary Preschool Paraprofessional: unknown, previously evaluated in [place]
PCP: Dr. Marty Abreu [phone]
Impression:
Admitted with acute OR 09/07/24
CAD s/p 3.5 mm [place] TORIBIO mid RCA 09/07/24
Cardiogenic shock
on Levophed and Dobutamine post-cath, weaned off 09/08/24
Complete heart block 09/07/24, back in NSR 09/08/24
s/p temp wire placement 09/07/24
Paroxysmal Afib
h/o SVT at time of extubation in 2022
HTN
HLD with prior statin/Zetia intolerance
anxiety
Smoker
Hyperglycemia and prediabetes
Echo 02/08/23: EF 55%, mild MR, mod TR, PA 45-50
Echo 09/08/24: EF 64%, moderate MR, mild AR, moderate to severe TR
Plan:
-Patient came to [facility] via EMS with chest pain and was admitted with acute IWMI and CHB. Patient was taken urgently to the computer lab assistant and had temp wire placed and then cath which showed a 100% mid RCA occlusion that was treated with thrombectomy then
PTCA and 3.5 mm TORIBIO. Patient with cardiogenic shock and was initially on Levo and Dobut, but able to be weaned off 09/08/24 AM. She received integrilin infusion, now off. Also required temp wire but removed yesterday as maintaining SR.
-She was noted to be intermittently confused yesterday with no focal deficit. Underwent head CT which was negative for acute abnormality. Overnight she was agitated and required IV Ativan and Haldol. She is calm this morning. Noted to continue
with some intermittent confusion. Nursing also noted with ambulating patient she has shuffling gait and leaning to left side which patient states is not her normal. Neurology consulted. Requested transition to hospitalist service for further
evaluation
-Troponin peaked at 35.7
-Continue aspirin, Brilinta
-LDL 142. Continue Lipitor. Unclear if will be able to tolerate, given history of statin/Zetia intolerance. May need transition to PCSK9 inhibitor
-LFTs uptrending, follow on statin
-No bradycardia or pauses noted on review of telemetry overnight. She is noted to have intermittent brief runs of aberrant conduction and ectopy. Will add Toprol 25 mg daily and follow closely. was taking nebivolol prior to admission
-she was noted to have PAF (new diagnosis) post PCI however no noted recurrences. will continue DAPT for now and will need to consider OAC if recurs. consider OP monitoring upon DC to assess for afib recurrence.
-Echo with results as above, EF preserved. hopefully MR/TR will improve as she recovers
-consider addition of kyra/arb in next 24 hours
-HgbA1c 6%, she has prediabetes. appreciate DM SENIOR IT SPECIALIST and dietary for low carb diet instructions.
-Cardiac rehab consulted
-ok with transfer to IVU
-d/w nursing
Progress Note - Preschool Paraprofessional
Subjective
Date of Service: September 09, 2024
with some confusion. no CP, SOB.
Objective
Labs:
09/09/24 06:15
09/09/24 06:15
Labs
Hgb 10.5 g/dL (12.0-16.0) L 09/09/24 06:15
Hct 32.5 % (37.0-47.0) L 09/09/24 06:15
Plt Count 234 10^3/uL (130-400) 09/09/24 06:15
PT 12.9 Sec (11.4-14.6) 09/07/24 22:30
INR 0.94 09/07/24 22:30
APTT 26.2 Sec (23.4-35.0) 09/07/24 22:30
Sodium 141 mmol/L (135-145) 09/09/24 06:15
Potassium 3.9 mmol/L (3.5-5.1) 09/09/24 06:15
BUN 18 mg/dl (7-17) H 09/09/24 06:15
Creatinine 0.6 mg/dL (0.6-1.0) 09/09/24 06:15
Glucose 129 mg/dl (70-99) H 09/09/24 06:15
Troponins
09/07/24 09/08/24 09/08/24
22:30 01:16 04:51
Troponin I 0.125 H* 2.190 H* D 21.300 H* D
09/08/24 09/08/24 09/08/24
11:35 17:47 18:38
Troponin I 35.700 H* D Cancelled 23.600 H* D
09/09/24 09/09/24
00:15 06:15
Troponin I Cancelled 13.900 H*
Vital Signs and I&O:
Vital Signs
Temp Pulse Resp BP Pulse Ox
97 F 82 18 136/68 98
09/09/24 08:28 09/09/24 08:28 09/09/24 08:28 09/09/24 08:28 09/09/24 08:28
Vital Signs
Temp Pulse Resp BP Pulse Ox
97 F 82 18 136/68 98
09/09/24 08:28 09/09/24 08:28 09/09/24 08:28 09/09/24 08:28 09/09/24 08:28
Intake & Output
09/07/24 09/08/24 09/09/24 09/10/24
07:59 07:59 07:59 07:59
Intake Total 279.6 / 318.6 334 / 434 100 / 100
Output Total 800 / 800
Balance 279.6 / 118.6 -466 / -366 100 / 100
Physical Exam
Physical Exam
GEN: No distress, awake, alert, oriented to self, date. confused at times, said she was at home
HEENT: supple, anicteric, mmm, eomi
LUNGS: CTA B/L, no wheezes/rales
CV: Reg, S1/S2, 1/6 syst LSB
ABD: soft, BS+, NT/ND
EXT: No cyanosis, clubbing. Trace edema of B/L LE
NEURO: B/L LE weakness
SKIN: Warm, pink, dry. No rash
[2024-09-09] MEDS: NICODERM TRANSDERMAL 14 MG TRANSDERM (09:49)
[2024-09-09] MEDS: TOPROL XL 25 MG PO (09:49)
--- NOTE | 2024-09-09 11:02 | CON.NEURO ---
Consultation
Order
Date of Consultation: 09/09/24
Requesting Provider: Concepcion Nation PA-C
Reason for Consult: encephalopathy
CC: none
HPI: This is a 74-year-old woman who presented to [facility] on 09/07/2024 with cardiogenic shock/STEMi.
Neurology consultation was requested for an evaluation and management of encephalopathy
Review of vital signs was notable for intermittent tachypnea.
ER VS: 86/57-70/52, HR 42-38, afebrile.
PDMP:Xanax 0.5 Mg 30 tabs filled in on 07/16/2024, 05/28/2024
MAR: Haloperidol 1 mg IV administered at 23: 07, lorazepam 0.5 mg IV administered at 22:36 on 09/08/2024
Labs: WBCs�12.4, glucose�129, total bilirubin 1.8, AST�218, ALT�130, alk phos�normal, troponin�13.900, normal sodium, creatinine, LDL�142, normal free T4
CT head�generalized atrophy with ventriculomegaly.
PMH: Paroxysmal Afib, CAD, HTN, DLP, IGT, nicotine addiction, PHm hiatal hernia, diverticulosis, cervical/LS DJD, CARROLL
PSH:TORIBIO mid RCA 09/07/24, appendectomy, LASIK
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
FH:no FH of dementia
All:statins/Zetia intolerance
ROS:Constitutional: Negative. Negative for chills, fever and unexpected weight change.
HENT: Negative for ear pain, hearing loss, tinnitus and trouble swallowing.
Eyes: Negative. Negative for photophobia, pain and visual disturbance.
Respiratory:positive for shortness of breath with exertion prio the admission
Cardiovascular: positive for leg swelling.
Gastrointestinal: Negative for abdominal pain and vomiting.
Endocrine: Negative. Negative for cold intolerance.
Genitourinary: Negative for dysuria, flank pain and urgency.
Musculoskeletal: Negative for back pain, gait problem, neck pain and neck stiffness.
Skin: Negative for rash.
Allergic/Immunologic: Negative. Negative for immunocompromised state.
Neurological: positive for transient confusion, imbalance
Psychiatric/Behavioral: positive for transient agitation
General: Well developed. In no acute distress.
Cardio: Regular rate and rhythm without murmur. Extremities are without cyanosis or edema.
Neuro:
Mental Status: Alert, oriented to person, place, and date. Follows complex requests across the midline. Comprehension, naming, and repetition intact.
Cranial Nerves: . Pupils are equally round and reactive to light. EOMs full. Visual elena full to confrontation. No ptosis. No nystagmus. V1-V3 intact to light touch and pinprick bilaterally, symmetric. Face symmetric. Min impaired hearing
AU. The palate elevated well. SCMs and traps 5/5. Tongue midline. No dysarthria.
Motor: Normal bulk and tone. No pronator or arm drift. Strength 5/5 throughout. No clonus.
Reflexes: neg grasp BL
Sensory: impaired proprioception at the toes
Coordination: No dysmetria or tremor.
Gait: deferred
Assessment and Plan:
I. Probable delirium
II. Multifactorial encephalopathy (toxic, metabolic, vascular), resolved
III. Paroxysmal Afib
-Avoid cerebral hypoperfusion, BRANCH CREDIT COUNSELOR suppressants
-Continue Nicotine patch
-Please check ua, ua cx, ua tox, vit B12, PTH, ammonia
-Start Thiamine
-Brain MRI wo carroll depending of TORIBIO scrip clerk timing safety recommendations.
-PT
-Avoid BRANCH CREDIT COUNSELOR suppressants
-Please recall neurology service with any questions or concerns
-The case was discussed with patient's daughter and .
I personally reviewed all radiology and labs along with past medical records pertinent to current medical problems. Total time spent in patient care is 65 minutes.
Thank you for allowing us to participate in the care of this patient. We will continue to follow. Please do not hesitate to contact us with any questions or concerns.
Subjective/Objective
Subjective Data
Date of Service: September 09, 2024
Objective Data
Vital Signs
Temp Pulse Resp BP Pulse Ox
36.1 C 97 25 136/68 98
09/09/24 08:28 09/09/24 09:00 09/09/24 09:00 09/09/24 08:28 09/09/24 08:28
Lab Results
09/09/24 06:15
09/09/24 06:15
PT 12.9 Sec (11.4-14.6) 09/07/24 22:30
INR 0.94 09/07/24 22:30
APTT 26.2 Sec (23.4-35.0) 09/07/24 22:30
Sodium 141 mmol/L (135-145) 09/09/24 06:15
Potassium 3.9 mmol/L (3.5-5.1) 09/09/24 06:15
BUN 18 mg/dl (7-17) H 09/09/24 06:15
Glucose 129 mg/dl (70-99) H 09/09/24 06:15
Calcium 9.5 mg/dl (8.4-10.2) 09/09/24 06:15
LDL Cholesterol, Calc 142 mg/dl 09/08/24 04:51
Patient Allergies
No Known Allergies Allergy (Verified 05/17/20 16:03)
Medications
-
Active Medications
Generic Name Dose Route Start Last Admin
Trade Name Freq PRN Reason Stop Dose Admin
Acetaminophen 650 mg 09/08/24 00:04 09/08/24 17:48
Acetaminophen 325 Mg Tablet PO 10/06/24 00:03 650 mg
Q4HPRN PRN Administration
mild pain
Aspirin 81 mg 09/08/24 08:00 09/09/24 08:29
Aspirin 81 Mg Chewable Tablet PO 10/06/24 07:59 81 mg
DAILY JOHN PAUL Administration
Atorvastatin Calcium 80 mg 09/08/24 18:00 09/08/24 17:53
Atorvastatin (Lipitor) 80 Mg Tablet PO 10/06/24 17:59 80 mg
QPM JOHN PAUL Administration
Metoprolol Succinate 25 mg 09/09/24 10:00 09/09/24 09:49
Metoprolol 25 Mg Extended Release Tablet PO 10/07/24 09:59 25 mg
DAILY JOHN PAUL Administration
Morphine Sulfate 2 mg 09/08/24 00:04
Morphine 2 Mg/Ml Syringe IV
Q1HPRN PRN
severe chest or mod back pain
Nicotine 14 mg 09/09/24 10:00 09/09/24 09:49
Nicotine 14 Mg Patch TRANSDERM 10/07/24 09:59 14 mg
DAILY JOHN PAUL Administration
Oxycodone/Acetaminophen 1 tablet 09/08/24 00:04 09/08/24 01:54
Oxycodone 5 Mg/Apap 325 Mg (Percocet) PO 09/22/24 00:03 1 tablet
Q4HPRN PRN Administration
moderate pain
Patch Removal 0 patch 09/09/24 22:00
Remove Nicotine Patch REMOVE 10/07/24 21:59
HS JOHN PAUL
Sodium Chloride 0 flush 09/08/24 05:00
Sodium Chloride 0.9% (Flush) Syringe IV 10/06/24 04:59
PER PROTOCOL JOHN PAUL
Ticagrelor 90 mg 09/08/24 08:00 09/09/24 08:29
Ticagrelor (Brilinta) 90 Mg Tablet PO 10/06/24 07:59 90 mg
BID JOHN PAUL Administration
Trimethobenzamide HCl 200 mg 09/08/24 00:15 09/08/24 01:11
Trimethobenzamide 200 Mg/2 Ml Vial IM 10/06/24 00:14 200 mg
Q6HPRN PRN Administration
Nausea
Home Medications
�Medication �Instructions �Recorded
Zetia 1 tab PO DAILY High Cholesterol 05/17/20
oxycodone 5 mg tablet 5 mg PO Q6HPRN PRN mod pain #10 02/08/23
tabs
amoxicillin 875 mg-potassium 1 tab PO Q12H Infection 09/08/24
clavulanate 125 mg tablet
nebivolol 2.5 mg tablet 5 mg PO DAILY Blood Pressure 09/08/24
Vital Signs and Labs
-
Vital Signs and Labs:
Vital Signs
Temp Pulse Resp BP Pulse Ox
36.2 C 76 18 140/72 99
09/09/24 11:32 09/09/24 11:32 09/09/24 11:32 09/09/24 11:32 09/09/24 11:32
Lab Results
09/09/24 06:15
09/09/24 06:15
PT 12.9 Sec (11.4-14.6) 09/07/24 22:30
INR 0.94 09/07/24 22:30
APTT 26.2 Sec (23.4-35.0) 09/07/24 22:30
Sodium 141 mmol/L (135-145) 09/09/24 06:15
Potassium 3.9 mmol/L (3.5-5.1) 09/09/24 06:15
BUN 18 mg/dl (7-17) H 09/09/24 06:15
Glucose 129 mg/dl (70-99) H 09/09/24 06:15
Calcium 9.2 mg/dl (8.4-10.2) 09/09/24 12:30
LDL Cholesterol, Calc 142 mg/dl 09/08/24 04:51
Vitamin B12 430 pg/ml (239-931) 09/09/24 12:30
Ur Buprenorphine Negative (Negative) 09/09/24 14:31
Medications
-
Medications:
Generic Name Dose Route Start Last Admin
Trade Name Freq PRN Reason Stop Dose Admin
Acetaminophen 650 mg 09/08/24 00:04 09/08/24 17:48
Acetaminophen 325 Mg Tablet PO 10/06/24 00:03 650 mg
Q4HPRN PRN Administration
mild pain
Aspirin 81 mg 09/08/24 08:00 09/09/24 08:29
Aspirin 81 Mg Chewable Tablet PO 10/06/24 07:59 81 mg
DAILY JOHN PAUL Administration
Atorvastatin Calcium 80 mg 09/08/24 18:00 09/08/24 17:53
Atorvastatin (Lipitor) 80 Mg Tablet PO 10/06/24 17:59 80 mg
QPM JOHN PAUL Administration
Heparin Sodium 5,000 units 09/09/24 20:00
Heparin 5,000 Units/Ml 1 Ml Vial SC 10/07/24 19:59
Q12 JOHN PAUL
Metoprolol Succinate 25 mg 09/09/24 10:00 09/09/24 09:49
Metoprolol 25 Mg Extended Release Tablet PO 10/07/24 09:59 25 mg
DAILY JOHN PAUL Administration
Morphine Sulfate 2 mg 09/08/24 00:04
Morphine 2 Mg/Ml Syringe IV
Q1HPRN PRN
severe chest or mod back pain
Nicotine 14 mg 09/09/24 10:00 09/09/24 09:49
Nicotine 14 Mg Patch TRANSDERM 10/07/24 09:59 14 mg
DAILY JOHN PAUL Administration
Oxycodone/Acetaminophen 1 tablet 09/08/24 00:04 09/08/24 01:54
Oxycodone 5 Mg/Apap 325 Mg (Percocet) PO 09/22/24 00:03 1 tablet
Q4HPRN PRN Administration
moderate pain
Patch Removal 0 patch 09/09/24 22:00
Remove Nicotine Patch REMOVE 10/07/24 21:59
HS JOHN PAUL
Sodium Chloride 0 flush 09/08/24 05:00
Sodium Chloride 0.9% (Flush) Syringe IV 10/06/24 04:59
PER PROTOCOL JOHN PAUL
Thiamine HCl 100 mg 09/09/24 12:00 09/09/24 12:04
Thiamine (100 Mg/Ml) 2 Ml Vial IV 09/11/24 08:01 100 mg
DAILY JOHN PAUL Administration
Ticagrelor 90 mg 09/08/24 08:00 09/09/24 08:29
Ticagrelor (Brilinta) 90 Mg Tablet PO 10/06/24 07:59 90 mg
BID JOH NPAUL Administration
Trimethobenzamide HCl 200 mg 09/08/24 00:15 09/08/24 01:11
Trimethobenzamide 200 Mg/2 Ml Vial IM 10/06/24 00:14 200 mg
Q6HPRN PRN Administration
Nausea
Home Medications
-
Home Medications
Zetia 1 tab PO DAILY High Cholesterol 05/17/20
oxycodone 5 mg tablet 5 mg PO Q6HPRN PRN mod pain #10 tabs 02/08/23
amoxicillin 875 mg-potassium clavulanate 125 mg tablet 1 tab PO Q12H Infection 09/08/24
nebivolol 2.5 mg tablet 5 mg PO DAILY Blood Pressure 09/08/24
--- NOTE | 2024-09-09 11:56 | PTCARENOTE ---
Pt reassessment unchanged, aaox2, confused with place, continue to redirect and remind the pt where she is at currently. VSS, NSR, RA, oob with rolling walker, family at bedside and update with plan of care for today.
[2024-09-09] MEDS: THIAMINE INJECTION 100 MG IV (12:04)
[2024-09-09 12:59] LABS: Ammonia < 9 umol/L (9-30)
[2024-09-09 13:00] LABS: Calcium 9.2 mg/dl (8.4-10.2)
--- NOTE | 2024-09-09 13:58 | CM ---
[facility]hunter davey [facility]- her copay in aug. is $103, she is ok with this samaniego. her husb thinks she is in the coverage gap, he has teachers union perscript plan.
--- NOTE | 2024-09-09 14:28 | CON.HOSP ---
Family Physician
-
Family Physician: INTERVIEWE UNKNOWN - PT NOT
Chief Complaint
-
Confusion
History of Present Illness
74 y/o female with PMHX of tobacco abuse, SVT, chronic back pain for which she receives local injections, diastolic dysfunction and hypertension presenting with abrupt onset chest pressure, nausea and vomiting. Patient found to have acute NE on
09/07 and was taken urgently to the laboratory aide and had temp wire placed and then cath which showed a 100% mid RCA occlusion that was treated with thrombectomy then PTCA and 3.5 mm TORIBIO. Course was complicated with cardiogenic shock, initially on
dobutamine and norepinephrine and weaned off on 09/08 morning. Patient's hemodynamics improved although noted to be confused yesterday with no focal deficit. CT head unremarkable for acute abnormality. Patient was agitated overnight and received
IV Ativan and Haldol. Patient is calm this morning although has intermittent confusion. Medicine was consulted for confusion and requesting transfer over to our service. Hemoglobin stable with BP 1/72, pulse 76, afebrile. X-ray unremarkable. UA
pending. Also noted to have elevated transaminitis with bilirubin 1.8, elevated AST and ALT.
Medical History
Past Medical History
Past Medical History: Reports Other (tobacco abuse, SVT, chronic back pain for which she receives local injections, diastolic dysfunction and hypertension )
Past Surgical History: Reports Appendectomy
Social History
Tobacco: Smoker (1.5 ppd)
Alcohol: Former
Drug: None
Personal:
Employment: Retired
Family History
Family History: Reviewed & Not Pertinent
Allergies / Home Medications
Allergies reflects when Allergies were last updated in [facility].
Home Medications with original date entered in [facility]
Allergy/Medication List:
Allergies
Allergy/AdvReac Type Severity Reaction Status Date / Time
No Known Allergies Allergy Verified 05/17/20 16:03
Home Medications
Zetia 1 tab PO DAILY High Cholesterol 05/17/20
oxycodone 5 mg tablet 5 mg PO Q6HPRN PRN mod pain #10 tabs 02/08/23
amoxicillin 875 mg-potassium clavulanate 125 mg tablet 1 tab PO Q12H Infection 09/08/24
nebivolol 2.5 mg tablet 5 mg PO DAILY Blood Pressure 09/08/24
Review of Systems
-
History Source: Patient
A 12 point Review of Systems was completed except as noted: Yes
Physical Exam
Vital Signs
Vital Signs
Temp Pulse Resp BP Pulse Ox
97.1 F 76 18 140/72 99
09/09/24 11:32 09/09/24 11:32 09/09/24 11:32 09/09/24 11:32 09/09/24 11:32
Physical Exam
General: Well Developed, Well Nourished and No Apparent Distress
HEENT: Normocephalic
Respiratory: Clear
Cardiac: S1/S2 and Regular Rhythm
GI: Soft and Non Tender
Musculoskeletal: No Clubbing and Edema (trace b/l)
Skin: Warm
Neuro: Awake, Alert, Oriented and Other (confused at times)
Psych: Calm
Laboratory Results
-
Laboratory Results
09/09/24 06:15
09/09/24 06:15
PT 12.9 Sec (11.4-14.6) 09/07/24 22:30
INR 0.94 09/07/24 22:30
APTT 26.2 Sec (23.4-35.0) 09/07/24 22:30
Total Bilirubin 1.8 mg/dl (0.2-1.3) H D 09/09/24 06:15
AST 218 U/L (14-36) H 09/09/24 06:15
ALT 130 U/L (0-35) H 09/09/24 06:15
Alkaline Phosphatase 109 U/L (38-126) 09/09/24 06:15
Troponin I 13.900 ng/ml H* 09/09/24 06:15
Data Reviewed
-
Diagnostic Radiology: Image personally visualized and interpreted and Report Reviewed by Me
CT Scan: Image personally visualized and interpreted and Report Reviewed by Me
Lab Data: Labs Reviewed
Impression / Plan
-
IMPRESSION:
74 y/o female with PMHX of tobacco abuse, SVT, chronic back pain for which she receives local injections, diastolic dysfunction and hypertension presenting with abrupt onset chest pressure, nausea and vomiting presented with Acute NE, s/p PCI and
complicated with cardiogenic shock. Patient was weaned off pressors although became confused. Medical consulted and will admit patient to our service.
PLAN:
#Acute metabolic encephalopathy
� Unclear etiology although delirium remains a possibility as well
� Follow-up UA
� No evidence of pneumonia on x-ray
� Follow fever curve, white count
� MRI brain with possibility of CVA status post PCI
� Neurology consulted by cardiology
� Avoid benzodiazepines, opiates if possible
#Leukocytosis
� I suspect secondary to acute stress
� Continue to monitor fever curve, white count
#Hyperbilirubinemia
#Transaminitis
� Follow-up right upper quadrant sonogram
� Follow-up hepatitis panel
#Elevated troponin
#Acute NE/STEMI
#Hyperlipidemia
-continue asa, brilinta, lipitor
-follow on tele. may need OP shelter monitor
-add toprol
#Complete heart block
� Was on dobutamine, pacing
� Follow cardiology recommendations
, Now can go back on beta-miguel
#PSVT
� Chronic
� On beta-miguel
#Hypertension
� Continue beta-miguel
#Tobacco use
� Chronic
� Encouraged to quit
#DVT ppx
HSQ
[2024-09-09 15:09] LABS: Intact PTH 49.9 pg/ml (13.6-85.8)
[2024-09-09 15:20] LABS: Urine Albumin Negative (Neg - Trace); Urine Bilirubin Negative (Negative); Urine Character Clear (Clear); Urine Color Yellow; Urine Glucose Trace (Negative); Urine Ketone 1+ (Negative); Urine Leukocyte Trace (Negative); Urine Nitrite Negative (Negative); Urine Occult Blood 2+ (Negative); Urine Urobilinogen Negative (Neg - 1+)
[2024-09-09 15:47] LABS: Vitamin B12 430 pg/ml (239-931)
[2024-09-09 16:06] LABS: Amphetamines Negative (Negative); Barbiturates Negative (Negative)
[2024-09-09 16:07] LABS: Benzodiazepines Negative (Negative); Buprenorphine Negative (Negative); Cocaine Negative (Negative); Marijuana Negative (Negative); Methadone Negative (Negative); Methamphetamines Negative (Negative); Opiates Negative (Negative); Phencyclidine Negative (Negative); Tricyclic Antidepressants Negative (Negative)
[2024-09-09 16:27] LABS: Urine Hyaline Cast 0-2 /LPF (0-2); Urine Squamous Cell 0-2 /LPF (Few)
[2024-09-09 16:28] LABS: Urine White Cell 0-2 /HPF (0-5)
--- NOTE | 2024-09-09 16:52 | PTCARENOTE ---
Pt reassessment unchanged from previous, vss, ra, nsr, oob with RN assistance, pt mental status continue to improve throughout the day, confusion with place still present but less frequent as the day progress. Pt will be transfer to IVU tonight.
[2024-09-09] MEDS: LIPITOR 80 MG PO (18:26)
[2024-09-09] MEDS: TYLENOL 650 MG PO (19:45)
[2024-09-09] MEDS: HEPARIN 5000 UNITS SC (19:46)
[2024-09-10] VITALS (9 sets, daily range): BP systolic 117–162; BP diastolic 66–96; BMI 21.5
--- NOTE | 2024-09-10 00:16 | PTCARENOTE ---
Rec'd pt at change of shift from CVICU. Pt AAO*3 however forgetful at times or slow to remember. Pt improved with orientation, mentation, and memory from previous shift however. Pt oriented to IVU and familiarized with call anderson in room by this
RN. Pt using call anderson appropriately and agreed to call for help before ambulating. Pt placed on bed/chair alarm for safety and ambulating with staff assistance only. Pt VSS, in NSR, and reports mild pain (rating at a 3/10) at R femoral site.
Dressing CDI without any drainage or shadowing. Pt resting in bed with call anderson in reach. Plan of care ongoing.
[2024-09-10 03:58] LABS: Hematocrit 28.7 % (37.0-47.0); Hemoglobin 9.5 g/dL (12.0-16.0); Mean Corp Hgb Conc. 33.1 g/dL (33.0-37.0); Mean Corpuscular Hgb 30.7 pg (27.0-31.0); Mean Corpuscular Volume 92.9 fL (81.0-99.0); Mean Platelet Volume 10.6 fL (7.4-10.4); Platelet Count 195 10^3/uL (130-400); Red Blood Cell Count 3.09 10^6/uL (4.20-5.40); Red Cell Dist. Width 13.4 % (11.5-14.5); White Blood Cell Count 9.4 10^3/uL (4.8-10.8)
[2024-09-10 04:18] LABS: ALT (SGPT) 89 U/L (0-35); AST (SGOT) 102 U/L (14-36); Albumin 3.2 g/dl (3.5-5.0); Alkaline Phosphatase 94 U/L (38-126); Blood Urea Nitrogen 19 mg/dl (7-17); Calcium 9.2 mg/dl (8.4-10.2); Carbon Dioxide 24 mmol/L (22-30); Chloride 106 mmol/L (98-107); Estimated Creatinine Clearance 66 ml/min; Glucose 107 mg/dl (70-99); Potassium 3.3 mmol/L (3.5-5.1); Sodium 139 mmol/L (135-145); Total Bilirubin 1.4 mg/dl (0.2-1.3); Total Protein 5.5 g/dl (6.3-8.2); eGFR > 60.00
[2024-09-10] MEDS: KCL 40 MEQ PO (05:06)
--- NOTE | 2024-09-10 07:52 | PTCARENOTE ---
Received patient this morning resting in bed. Right groin dressing is dry and intact. Assisted with the rolling walker to the bedside commode to void. Patient did use call anderson to request assistance and is alert and oriented this morning. Resting
in bed now, NPO for U/S of the abdomen. Call anderson in reach, bed alarm in place and activated.
[2024-09-10] MEDS: BRILINTA 90 MG PO ×2 (09:19→19:49)
[2024-09-10] MEDS: THIAMINE INJECTION 100 MG IV (09:20)
[2024-09-10] MEDS: NICODERM TRANSDERMAL 14 MG TRANSDERM (09:20)
[2024-09-10] MEDS: HEPARIN 5000 UNITS SC ×2 (09:20→19:46)
[2024-09-10] MEDS: LOW STRENGTH ASPIRIN 81 MG PO (09:20)
[2024-09-10] MEDS: TOPROL XL 25 MG PO (09:22)
[2024-09-10] MEDS: FLUSH (NSS) 1 FLUSH IV (09:22)
--- NOTE | 2024-09-10 09:51 | CM ---
Chart reviewed. Patient is independent of ADLS, lives with her in a 2 [address], 3 [place], 0 DME. Patient was seeing Psychiatry as an outpatient for unsteady gait. Psychiatry had braces made for the patient, but the patient has not received them
yet. PT evaluation ordered. Plan is for the patient to return home. CM to follow
[2024-09-10 10:04] LABS: Hematocrit 29.9 % (37.0-47.0); Hemoglobin 10.1 g/dL (12.0-16.0); Mean Corp Hgb Conc. 33.8 g/dL (33.0-37.0); Mean Corpuscular Hgb 31.2 pg (27.0-31.0); Mean Corpuscular Volume 92.3 fL (81.0-99.0); Mean Platelet Volume 10.3 fL (7.4-10.4); Platelet Count 199 10^3/uL (130-400); Red Blood Cell Count 3.24 10^6/uL (4.20-5.40); Red Cell Dist. Width 13.4 % (11.5-14.5); White Blood Cell Count 8.8 10^3/uL (4.8-10.8)
--- NOTE | 2024-09-10 11:34 | W.PN.CARDCBS ---
Addendum entered and electronically signed by Wesley Mukherjee DO 09/10/24 18:38:
I saw and examined the patient.
The Supervisor Blasting's note was reviewed and I agree with the note.
Comment:
Plan:
Continues to improve
Cont DAPT
Cont statin
Toprol increased for ectopy. HR improved.
Outpt monitor at d/c to eval for aFib.
If continues to improve, possible d/c from cardiac standpoint tomorrow.
Original Note:
Today's Communication / Plan
-
follow mental status, appears to be improving
continue asa, brilinta, statin
increase toprol.
will need OP lurer upon DC
possible DC in AM from cardiac standpoint
Impression / Plan
-
Primary Contract Mail Carrier: unknown, previously evaluated in [place]
PCP: Dr. Marty Abreu [phone]
Impression:
Admitted with acute NJ 09/07/24
CAD s/p 3.5 mm Cruz TORIBIO mid RCA 09/07/24
Cardiogenic shock
on Levophed and Dobutamine post-cath, weaned off 09/08/24
Complete heart block 09/07/24, back in NSR 09/08/24
s/p temp wire placement 09/07/24
Paroxysmal Afib
Acute metabolic encephalopathy
h/o SVT at time of extubation in 2022
HTN
HLD with prior statin/Zetia intolerance
anxiety
Smoker
Hyperglycemia and prediabetes
Echo 02/08/23: EF 55%, mild MR, mod TR, PA 45-50
Echo 09/08/24: EF 64%, moderate MR, mild AR, moderate to severe TR
Plan:
-Patient came to [facility] via EMS with chest pain and was admitted with acute IWMI and CHB. Patient was taken urgently to the analytical laboratory technician and had temp wire placed and then cath which showed a 100% mid RCA occlusion that was treated with thrombectomy then
PTCA and 3.5 mm TORIBIO. Patient with cardiogenic shock and was initially on Levo and Dobut, but able to be weaned off 09/08/24 AM. She received integrilin infusion, now off. Also required temp wire but removed 09/08 as maintaining SR.
-her confusion appears to be clearing. appreciate neurology input. head CT was negative
-Troponin peaked at 35.7
-Continue aspirin, Brilinta
-LDL 142. Continue Lipitor. Unclear if will be able to tolerate, given history of statin/Zetia intolerance. May need transition to PCSK9 inhibitor as OP
-LFTs downtrending, follow on statin therapy
-No bradycardia or pauses noted on review of telemetry overnight. continues with intermittent brief runs of aberrant conduction and ectopy. Will increase toprol dose to 25mg BID and follow. was taking nebivolol prior to admission
-she was noted to have PAF (new diagnosis) post PCI however no noted recurrences. will continue DAPT for now and will need to consider OAC if recurs. will plan for OP lurer upon DC to assess for afib recurrence.
-Echo with results as above, EF preserved. hopefully MR/TR will improve as she recovers
-consider addition of kyra/arb in next 24 hours
-HgbA1c 6%, she has prediabetes. appreciate [facility] and dietary for low carb diet instructions.
-Cardiac rehab consulted
-smoking cessation encouraged
-for possible DC in AM from cardiac standpoint
Progress Note - Contract Mail Carrier
Subjective
Date of Service: September 10, 2024
patient reports feeling 'so-so'. appears more lucid than yesterday
Objective
Labs:
09/10/24 09:39
09/10/24 03:09
Labs
Hgb 10.1 g/dL (12.0-16.0) L 09/10/24 09:39
Hct 29.9 % (37.0-47.0) L 09/10/24 09:39
Plt Count 199 10^3/uL (130-400) 09/10/24 09:39
PT 12.9 Sec (11.4-14.6) 09/07/24 22:30
INR 0.94 09/07/24 22:30
APTT 26.2 Sec (23.4-35.0) 09/07/24 22:30
Sodium 139 mmol/L (135-145) 09/10/24 03:09
Potassium 3.3 mmol/L (3.5-5.1) L 09/10/24 03:09
BUN 19 mg/dl (7-17) H 09/10/24 03:09
Creatinine 0.6 mg/dL (0.6-1.0) 09/10/24 03:09
Glucose 107 mg/dl (70-99) H 09/10/24 03:09
Troponins
09/07/24 09/08/24 09/08/24
22:30 01:16 04:51
Troponin I 0.125 H* 2.190 H* D 21.300 H* D
09/08/24 09/08/24 09/08/24
11:35 17:47 18:38
Troponin I 35.700 H* D Cancelled 23.600 H* D
09/09/24 09/09/24
00:15 06:15
Troponin I Cancelled 13.900 H*
Vital Signs and I&O:
Vital Signs
Temp Pulse Resp BP Pulse Ox
98.7 F 78 16 135/66 95
09/10/24 06:57 09/10/24 08:00 09/10/24 06:57 09/10/24 06:59 09/10/24 06:57
Vital Signs
Temp Pulse Resp BP Pulse Ox
98.7 F 78 16 135/66 95
09/10/24 06:57 09/10/24 08:00 09/10/24 06:57 09/10/24 06:59 09/10/24 06:57
Intake & Output
09/08/24 09/09/24 09/10/24 09/11/24
07:59 07:59 07:59 07:59
Intake Total 279.6 / 318.6 334 / 434 100 / 100 240 / 240
Output Total 800 / 800
Balance 279.6 / 118.6 -466 / -366 100 / 100 240 / 240
Physical Exam
Physical Exam
GEN: No distress, awake, alert, oriented x3
HEENT: supple, anicteric, mmm, eomi
LUNGS: CTA B/L, no wheezes
CV: Reg, S1/S2, 2/6 murmur
ABD: soft, BS+, NT/ND
EXT: No cyanosis, clubbing, edema
NEURO: Gross non-focal
SKIN: Warm, pink, dry. No rash. Facial ecchymoses
--- NOTE | 2024-09-10 15:04 | W.PN.HOSP.TC ---
Today's Communication/Plan
-
monitor mental status
mri brain although high suspicion for delirium
Ultrasound equivocal, follow-up HIDA scan
Assessment / Plan
Assessment / Plan
GEN: No distress, awake, alert, oriented x3
HEENT: supple, anicteric, mmm, eomi
LUNGS: CTA B/L, no wheezes
CV: Reg, S1/S2, 2/6 murmur
ABD: soft, BS+, NT/ND
EXT: No cyanosis, clubbing, edema
NEURO: Gross non-focal
SKIN: Warm, pink, dry. No rash. Facial ecchymoses
74 y/o female with PMHX of tobacco abuse, SVT, chronic back pain for which she receives local injections, diastolic dysfunction and hypertension presenting with abrupt onset chest pressure, nausea and vomiting presented with Acute [place], s/p PCI and
complicated with cardiogenic shock. Patient was weaned off pressors although became confused. Medical consulted and will admit patient to our service.
PLAN:
#Acute metabolic encephalopathy
� Most likely delirium, improving
� UA negative
� No evidence of pneumonia on x-ray
� Follow fever curve, white count
� MRI brain with possibility of CVA status post PCI
� Neurology consulted by cardiology
� Avoid benzodiazepines, opiates if possible
�Thiamine�avoid CARD LACER JACQUARD depressants
#Leukocytosis
� I suspect secondary to acute stress
� Continue to monitor fever curve, white count
�Trending down
#Hyperbilirubinemia
#Transaminitis
� Follow-up right upper quadrant sonogram with equivocal findings
� Follow-up hepatitis panel
� HIDA scan ordered
#Elevated troponin
#Acute [place]/STEMI
#Hyperlipidemia
-continue asa, brilinta, lipitor
-follow on tele. may need OP monitor technician
-Increase Toprol
#Complete heart block
� Was on dobutamine, pacing
� Follow cardiology recommendations
- Now can go back on beta-miguel
- Will need outpatient monitor technician upon discontinuation
#Hypokalemia
� Monitor and replete
#PSVT
� Chronic
� On beta-miguel
#Hypertension
� Continue beta-miguel
#Tobacco use
� Chronic
� Encouraged to quit
#DVT ppx
HSQ
Total time spent on today's encounter was 50 minutes which included time spent in counseling the patient/family regarding diagnosis and treatment plan as listed above, goals of care, and symptom management. Case was discussed with nursing staff,
specialists, and care coordinators/case management. All labs and imaging personally reviewed by me. Remainder the time spent in detailed review of previous records, lab data, imaging, and other medical provider documentation.
Anticipated Discharge: 24 - 48 hours
Subjective/Interval History
-
Date of Service: September 10, 2024
Mental status at baseline.
Objective Data
-
Labs:
Laboratory Results
09/10/24 09/10/24
03:09 09:39
WBC 9.4 8.8
Hgb 9.5 L 10.1 L
Hct 28.7 L 29.9 L
Plt Count 195 199
Sodium 139
Potassium 3.3 L
Chloride 106
Carbon Dioxide 24
BUN 19 H
Creatinine 0.6
Glucose 107 H
Calcium 9.2
Total Bilirubin 1.4 H
AST 102 H
ALT 89 H
Alkaline Phosphatase 94
Vital Signs:
Vital Signs
Temp Pulse Resp BP Pulse Ox
98.2 F 77 18 131/71 96
09/10/24 11:47 09/10/24 12:00 09/10/24 11:47 09/10/24 11:47 09/10/24 11:47
I&O
09/09/24 09/10/24 09/11/24
06:59 06:59 06:59
Intake Total 373 / 373 100 / 100 240 / 240
Output Total 800 / 800
Balance -427 / -427 100 / 100 240 / 240
Review of Systems
-
History Source: Patient
All other systems: Not reviewed unless documented
Physical Exam
-
General: No Apparent Distress
HEENT: PERRLA
Respiratory: Clear to Auscultation; Negative Wheezes
Cardiac: Regular Rhythm and S1/S2
Musculoskeletal: No Edema
Skin: Warm and Dry; Negative Rash
Neuro: AO x 3
Psych: Calm
Data Reviewed
-
Diagnostic Radiology: Report Reviewed by me
Ultrasound: Image personally visualized and interpreted
Labs: Labs Reviewed by me
[2024-09-10] MEDS: LIPITOR 80 MG PO (17:47)
--- NOTE | 2024-09-10 22:39 | PTCARENOTE ---
Pt received start of shift, HR SR. Pt AAOx3, forgetful at times - bed alarm on. R groin site dressing CDI. R groin site soft, no hematoma. Reinforced CAD education, emphasizing medications. Pt states understanding but will need further
reinforcement. Pt denies any CP, SOB, or lightheadedness/dizziness. Informed to notify RN if any changes, call anderson within reach.
[2024-09-11] VITALS (8 sets, daily range): BP systolic 117–157; BP diastolic 62–81; BMI 21.5
[2024-09-11 05:27] LABS: Hematocrit 30.9 % (37.0-47.0); Hemoglobin 10.3 g/dL (12.0-16.0); Mean Corp Hgb Conc. 33.3 g/dL (33.0-37.0); Mean Corpuscular Hgb 30.3 pg (27.0-31.0); Mean Corpuscular Volume 90.9 fL (81.0-99.0); Mean Platelet Volume 10.2 fL (7.4-10.4); Platelet Count 214 10^3/uL (130-400); Red Cell Dist. Width 13.3 % (11.5-14.5); White Blood Cell Count 8.7 10^3/uL (4.8-10.8)
[2024-09-11 05:53] LABS: ALT (SGPT) 69 U/L (0-35); AST (SGOT) 64 U/L (14-36); Albumin 3.2 g/dl (3.5-5.0); Alkaline Phosphatase 98 U/L (38-126); Blood Urea Nitrogen 13 mg/dl (7-17); Carbon Dioxide 25 mmol/L (22-30); Chloride 107 mmol/L (98-107); Estimated Creatinine Clearance 66 ml/min; Glucose 111 mg/dl (70-99); Potassium 3.9 mmol/L (3.5-5.1); Sodium 141 mmol/L (135-145); Total Bilirubin 1.3 mg/dl (0.2-1.3); Total Protein 5.8 g/dl (6.3-8.2); eGFR > 60.00
--- NOTE | 2024-09-11 07:36 | PTCARENOTE ---
Received patient this morning resting in bed, NPO for Hida scan. Patient assisted to the commode and sent for testing, informed her that I would order her breakfast for her return back to the room. Nuclear med now calling saying the patient is
refusing the scan when she was told the length of the test. Requested that nuclear med tt hospitalist.
[2024-09-11] MEDS: HEPARIN 5000 UNITS SC ×2 (09:14→20:56)
[2024-09-11] MEDS: BRILINTA 90 MG PO (09:14)
[2024-09-11] MEDS: LOW STRENGTH ASPIRIN 81 MG PO (09:15)
[2024-09-11] MEDS: NICODERM TRANSDERMAL 14 MG TRANSDERM (09:15)
[2024-09-11] MEDS: THIAMINE INJECTION 100 MG IV (09:16)
[2024-09-11] MEDS: TOPROL XL 25 MG PO ×2 (09:16→20:57)
[2024-09-11] MEDS: FLUSH (NSS) 1 FLUSH IV (09:16)
--- NOTE | 2024-09-11 12:37 | CM ---
Addendum entered by Rosana Carlton RN 09/11/24 13:19:
Family is agreeable to cost.
Original Note:
Pricing on Eliquis through the patient's prescription plan, [employer] ID# [id number], is $68.76 for a 30 day supply and $204.62 90 day supply. I will review cost with the patient and place a free 30 day coupon in her red discharge folder.
--- NOTE | 2024-09-11 13:20 | CM ---
Chart reviewed. Patient is independent of ADLS, lives with her in a 2 STH, 3 CANDELARIA, 0 DME. Patient recently had braces made for her legs but hasn't received them yet. PT evaluation recommending Home PT. Patient is agreeable. Referral
sent to [facility]. Plan is for the patient to return home with [facility]. CM to follow
--- NOTE | 2024-09-11 14:21 | W.PN.CARDCBS ---
Addendum entered and electronically signed by Wesley Mukherjee DO 09/11/24 19:12:
I saw and examined the patient.
The Household Appliance Mechanic's note was reviewed and I agree with the note.
Comment:
General: No acute distress, AAOX3
Neck: Negative JVD
Heart: Regular, Negative S3 positive S1/S2, Negative S4, No murmur
Lungs: CTA b/l, negative wheezes/rales/rhonchi
Abd: Positive BS, NT/ND, neg rebound/rigidity/guarding
Ext: Negative cyanosis/clubbing/edema
Neuro: nonfocal
Plan:
Reviewed MRI with pt and family. In light of aFib noted during PCI, discussed anticoagulation. Reviewed with interventional cardiology. Plan is to stop ASA and Brilinta. Transition to Plavix in AM. 600 mg load in AM then start 75 mg BID thereafter.
Start Eliquis AM Sep 12.
Outpt monitor to eval for recurrent AFib.
HR and bp stable.
EF preserved. Reeval echo as outpt to reeval MR and TR.
Smoking cessation has been discussed
Discussed with pt and family at bedside. They were appreciative. They would like to follow up with [facility] at d/c
If continues to improve likely d/c Sep 12.
Original Note:
Today's Communication / Plan
-
stop asa and brilinta. transition to plavix in AM. start eliquis tonight
continue toprol. add lisinopril
consider for amiodarone
will need repeat echo as OP
DC planning
Impression / Plan
-
Primary Venetian Blind Cleaner And Repairer: unknown, previously evaluated in [place]
PCP: Dr. Marty Abreu [phone]
Impression:
Admitted with acute VT 09/07/24
CAD s/p 3.5 mm [place] TORIBIO mid RCA 09/07/24
Cardiogenic shock
on Levophed and Dobutamine post-cath, weaned off 09/08/24
Complete heart block 09/07/24, back in NSR 09/08/24
s/p temp wire placement 09/07/24
Paroxysmal Afib
Acute metabolic encephalopathy
h/o SVT at time of extubation in 2022
HTN
HLD with prior statin/Zetia intolerance
anxiety
Smoker
Hyperglycemia and prediabetes
Echo 02/08/23: EF 55%, mild MR, mod TR, PA 45-50
Echo 09/08/24: EF 64%, moderate MR, mild AR, moderate to severe TR
Plan:
-Patient came to [facility] via EMS with chest pain and was admitted with acute IWMI and CHB. Patient was taken urgently to the laborer airport maintenance and had temp wire placed and then cath which showed a 100% mid RCA occlusion that was treated with thrombectomy then
PTCA and 3.5 mm TORIBIO. Patient with cardiogenic shock and was initially on Levo and Dobut, but able to be weaned off 09/08/24 AM. She received integrilin infusion, now off. Also required temp wire but removed 09/08 as maintaining SR. trop peaked at
35.7
-she had some confusion 09/09, however no focal deficits and is clearing. head CT negative. brain MRI with tiny acute vs subacute L parietal lobe infarct.
-currently on asa, brilinta. on review of tele appears to have had recurrence of afib vs aflutter with RVR this morning, brief and self limited. also had PAF post PCI. will plan to stop asa, transition brilinta to plavix in AM and start eliquis 5mg
BID.
-continue toprol 25mg BID. no damari or pauses on tele overnight. initial bradycardia/HB felt to be secondary to RCA lesion. was taking nebivolol prior to admission
-could consider for amiodarone given PAF. will follow on tele
-LDL 142. Continue Lipitor. Unclear if will be able to tolerate, given history of statin/Zetia intolerance. May need transition to PCSK9 inhibitor as OP
-LFTs downtrending, follow on statin therapy
-Echo with results as above, EF preserved. hopefully MR/TR will improve as she recovers. will require repeat echo as OP
-will add lisinopril 2.5mg daily and follow BPs
-HgbA1c 6%, she has prediabetes. appreciate DM RECREATION WORKER and dietary
-Cardiac rehab
-smoking cessation encouraged
-OP cardiac follow up arranged
-d/w hospitalist
Progress Note - Venetian Blind Cleaner And Repairer
Subjective
Date of Service: September 11, 2024
no CP, SOB
Objective
Labs:
09/11/24 04:30
09/11/24 04:30
Labs
Hgb 10.3 g/dL (12.0-16.0) L 09/11/24 04:30
Hct 30.9 % (37.0-47.0) L 09/11/24 04:30
Plt Count 214 10^3/uL (130-400) 09/11/24 04:30
PT 12.9 Sec (11.4-14.6) 09/07/24 22:30
INR 0.94 09/07/24 22:30
APTT 26.2 Sec (23.4-35.0) 09/07/24 22:30
Sodium 141 mmol/L (135-145) 09/11/24 04:30
Potassium 3.9 mmol/L (3.5-5.1) 09/11/24 04:30
BUN 13 mg/dl (7-17) 09/11/24 04:30
Creatinine 0.6 mg/dL (0.6-1.0) 09/11/24 04:30
Glucose 111 mg/dl (70-99) H 09/11/24 04:30
Troponins
09/08/24 09/08/24 09/09/24
17:47 18:38 00:15
Troponin I Cancelled 23.600 H* D Cancelled
09/09/24
06:15
Troponin I 13.900 H*
Vital Signs and I&O:
Vital Signs
Temp Pulse Resp BP Pulse Ox
98.4 F 74 18 142/66 95
09/11/24 11:11 09/11/24 11:12 09/11/24 11:11 09/11/24 11:12 09/11/24 11:12
Vital Signs
Temp Pulse Resp BP Pulse Ox
98.4 F 74 18 142/66 95
09/11/24 11:11 09/11/24 11:12 09/11/24 11:11 09/11/24 11:12 09/11/24 11:12
Intake & Output
09/09/24 09/10/24 09/11/24 09/12/24
07:59 07:59 07:59 07:59
Intake Total 334 / 434 100 / 100 960 / 960 240 / 240
Output Total 800 / 800
Balance -466 / -366 100 / 100 960 / 960 240 / 240
--- NOTE | 2024-09-11 14:22 | W.PN.HOSP.TC ---
Today's Communication/Plan
-
plavix load, eliquis tomorrow
statin
Assessment / Plan
Assessment / Plan
GEN: No distress, awake, alert, oriented x3
HEENT: supple, anicteric, mmm, eomi
LUNGS: CTA B/L, no wheezes
CV: Reg, S1/S2, 2/6 murmur
ABD: soft, BS+, NT/ND
EXT: No cyanosis, clubbing, edema
NEURO: Gross non-focal
SKIN: Warm, pink, dry. No rash. Facial ecchymoses
74 y/o female with PMHX of tobacco abuse, SVT, chronic back pain for which she receives local injections, diastolic dysfunction and hypertension presenting with abrupt onset chest pressure, nausea and vomiting presented with Acute [place], s/p PCI and
complicated with cardiogenic shock. Patient was weaned off pressors although became confused. Medical consulted and will admit patient to our service.
PLAN:
#Acute metabolic encephalopathy
� Most likely delirium, improving; + small nonhemorrhagic acute/subacute infarct in the left parietal lobe/posterior centrum semiovale region
� UA negative
� Neurology consulted by cardiology
� Avoid benzodiazepines, opiates if possible
�Thiamine�avoid COMPUTED TOMOGRAPHY TECHNICIAN depressants
-eliquis, plavix , statin
#Leukocytosis
� I suspect secondary to acute stress
� Continue to monitor fever curve, white count
�Trending down
#CVA
� Follow-up neurology outpatient
� Already on DAPT, although now with CVA switching over to Plavix and Eliquis
� Statin
�Outpatient environmental monitoring specialist
#Hyperbilirubinemia
#Transaminitis
� right upper quadrant sonogram with equivocal findings
� I suspect this is due to recent shock
� No right upper quadrant tenderness, refused HIDA scan
� Doubt this is acute cholecystitis with recent shock, no right upper quadrant tenderness and improving LFTs; can hold off on HIDA scan at this time
� Follow-up hepatitis panel
#Elevated troponin
#Acute [place]/STEMI
#Hyperlipidemia
-continue statin
� Switch Brilinta to Plavix
� Start Eliquis tomorrow morning
-follow on tele. Will need outpatient environmental monitoring specialist
-Increase Toprol
#Complete heart block
� Was on dobutamine, pacing
� Follow cardiology recommendations
- Now can go back on beta-miguel
- Will need outpatient environmental monitoring specialist upon discontinuation
#Hypokalemia
� Monitor and replete
#PSVT
� Chronic
� On beta-miguel
-with CVA - holter monitor outpt
#Hypertension
� Continue beta-miguel
#Tobacco use
� Chronic
� Encouraged to quit
#DVT ppx
HSQ
Total time spent on today's encounter was 53 minutes which included time spent in counseling the patient/family regarding diagnosis and treatment plan as listed above, goals of care, and symptom management. Case was discussed with nursing staff,
specialists, and care coordinators/case management. All labs and imaging personally reviewed by me. Remainder the time spent in detailed review of previous records, lab data, imaging, and other medical provider documentation.
Anticipated Discharge: Within 24 hours
Subjective/Interval History
-
Date of Service: September 11, 2024
No abdominal pain, MRI with evidence of small stroke
Objective Data
-
Labs:
Laboratory Results
09/11/24
04:30
WBC 8.7
Hgb 10.3 L
Hct 30.9 L
Plt Count 214
Sodium 141
Potassium 3.9
Chloride 107
Carbon Dioxide 25
BUN 13
Creatinine 0.6
Glucose 111 H
Calcium 9.0
Total Bilirubin 1.3
AST 64 H
ALT 69 H
Alkaline Phosphatase 98
Vital Signs:
Vital Signs
Temp Pulse Resp BP Pulse Ox
98.4 F 74 18 142/66 95
09/11/24 11:11 09/11/24 11:12 09/11/24 11:11 09/11/24 11:12 09/11/24 11:12
I&O
09/10/24 09/11/24 09/12/24
06:59 06:59 06:59
Intake Total 100 / 100 960 / 960 240 / 240
Balance 100 / 100 960 / 960 240 / 240
Review of Systems
-
History Source: Patient
All other systems: Not reviewed unless documented
Physical Exam
-
General: No Apparent Distress
HEENT: PERRLA
Respiratory: Clear to Auscultation; Negative Wheezes
Cardiac: Regular Rhythm and S1/S2
Musculoskeletal: No Edema
Skin: Warm and Dry; Negative Rash
Neuro: AO x 3
Psych: Calm
Data Reviewed
-
Diagnostic Radiology: Report Reviewed by me
Ultrasound: Image personally visualized and interpreted
Labs: Labs Reviewed by me
[2024-09-11] MEDS: PEPCID 40 MG PO (14:31)
--- NOTE | 2024-09-11 14:35 | PTCARENOTE ---
Patient complained of heart burn after eating lunch, denied any chest pain or sob. Notified hospitalist and patient given pepcid PO as ordered.
[2024-09-11] MEDS: LIPITOR 80 MG PO (16:45)
[2024-09-11] MEDS: ZESTRIL 2.5 MG PO (16:45)
[2024-09-12 03:45] VITALS: BP 139/75
[2024-09-12 03:49] VITALS: BMI 21.4
[2024-09-12 04:07] LABS: Hematocrit 30.7 % (37.0-47.0); Hemoglobin 10.2 g/dL (12.0-16.0); Mean Corp Hgb Conc. 33.2 g/dL (33.0-37.0); Mean Corpuscular Hgb 30.7 pg (27.0-31.0); Mean Corpuscular Volume 92.5 fL (81.0-99.0); Mean Platelet Volume 10.2 fL (7.4-10.4); Platelet Count 235 10^3/uL (130-400); Red Blood Cell Count 3.32 10^6/uL (4.20-5.40); Red Cell Dist. Width 13.2 % (11.5-14.5); White Blood Cell Count 8.9 10^3/uL (4.8-10.8)
[2024-09-12 04:33] LABS: ALT (SGPT) 51 U/L (0-35); AST (SGOT) 42 U/L (14-36); Albumin 3.1 g/dl (3.5-5.0); Alkaline Phosphatase 94 U/L (38-126); Blood Urea Nitrogen 15 mg/dl (7-17); Carbon Dioxide 26 mmol/L (22-30); Chloride 105 mmol/L (98-107); Estimated Creatinine Clearance 66 ml/min; Glucose 105 mg/dl (70-99); Potassium 3.9 mmol/L (3.5-5.1); Sodium 140 mmol/L (135-145); Total Bilirubin 1.1 mg/dl (0.2-1.3); Total Protein 5.5 g/dl (6.3-8.2); eGFR > 60.00
--- NOTE | 2024-09-12 06:54 | PTCARENOTE ---
Pt received at change of shift. VSS, SR on tele with HR 70s. AAOx3 but forgetful at times. Pt encouraged to ring for assistance as needed for ambulation and bed alarm activated for pt safety. Pt ambulating with x1 assist and rolling walker. R
groin site ecchymotic and NAN. Call anderson within reach.
[2024-09-12 08:04] VITALS: BP 137/90
[2024-09-12] MEDS: NICODERM TRANSDERMAL 14 MG TRANSDERM (08:08)
[2024-09-12] MEDS: PEPCID 40 MG PO (08:09)
[2024-09-12] MEDS: TOPROL XL 25 MG PO (08:09)
[2024-09-12] MEDS: ZESTRIL 2.5 MG PO (08:09)
[2024-09-12] MEDS: ELIQUIS 5 MG PO (08:09)
[2024-09-12] MEDS: PLAVIX 600 MG PO (08:10)
--- NOTE | 2024-09-12 08:51 | W.PN.CARDCBS ---
Addendum entered and electronically signed by Marcos Brooks MD 09/12/24 09:22:
I saw and examined the patient.
The Beef Lugger's note was reviewed and I agree with the note.
Comment:
GEN: No distress, awake, Ox3
HEENT: supple, anicteric, mmm
LUNGS: CTA, no wheezes/rales
CV: Reg, S1/S2, 1/6 syst LSB, no gallop
ABD: soft, BS+, NT/ND
EXT: No edema
NEURO: Gross non-focal
SKIN: No rash
Plan:
Telemetry overall stable. Okay for discharge from cardiology standpoint.
Continue Toprol lisinopril, atorvastatin.
We will use Eliquis 5 p.o. twice daily and Plavix 75 p.o. daily for anticoagulation for now.
Smoking cessation. Advised on safety measures.
Original Note:
Today's Communication / Plan
-
continue plavix 75mg daily, eliquis 5mg BID. no asa
toprol 25mg BID, lisinopril 2.5mg daily
lipitor 80mg QPM
smoking cessation
cardiac rehab
OP cardiac follow up arranged
PT
ok for DC to home today from cardiac standpoint
Impression / Plan
-
Primary Account Consultant: unknown, previously evaluated in [place]
PCP: Dr. Marty Abreu [phone]
Impression:
Admitted with acute OR 09/07/24
CAD s/p 3.5 mm [place] TORIBIO mid RCA 09/07/24
Cardiogenic shock
on Levophed and Dobutamine post-cath, weaned off 09/08/24
Complete heart block 09/07/24, back in NSR 09/08/24
s/p temp wire placement 09/07/24
Paroxysmal Afib
Acute metabolic encephalopathy
h/o SVT at time of extubation in 2022
HTN
HLD with prior statin/Zetia intolerance
anxiety
Smoker
Hyperglycemia and prediabetes
Echo 02/08/23: EF 55%, mild MR, mod TR, PA 45-50
Echo 09/08/24: EF 64%, moderate MR, mild AR, moderate to severe TR
Plan:
-Patient came to [facility] via EMS with chest pain and was admitted with acute IWMI and CHB. Patient was taken urgently to the laborer yard and had temp wire placed and then cath which showed a 100% mid RCA occlusion that was treated with thrombectomy then
PTCA and 3.5 mm TORIBIO. Patient with cardiogenic shock and was initially on Levo and Dobut, but able to be weaned off 09/08/24 AM. She received integrilin infusion, now off. Also required temp wire but removed 09/08 as maintaining SR. trop peaked at
35.7
-she had some confusion 09/09, however no focal deficits and improved. head CT negative. brain MRI with tiny acute vs subacute L parietal lobe infarct.
-given PCI and PAF, will plan to DC on plavix and eliquis. d/w interventional cards 09/11
-continue toprol 25mg BID. no damari or pauses on tele overnight. initial bradycardia/HB felt to be secondary to RCA lesion. was taking nebivolol prior to admission
-could consider for amiodarone given PAF
-LDL 142. Continue Lipitor. Unclear if will be able to tolerate, given history of statin/Zetia intolerance. May transition to PCSK9 inhibitor as OP
-LFTs downtrending, follow on statin therapy. CMP in 1 week
-Echo with results as above, EF preserved. hopefully MR/TR will improve as she recovers. will require repeat echo as OP
-continue low dose lisinopril. can uptitrate regimen as needed for BP control
-HgbA1c 6%, she has prediabetes. 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
-Cardiac rehab
-smoking cessation encouraged
-OP cardiac follow up arranged
-d/w nursing
Progress Note - Account Consultant
Subjective
Date of Service: September 12, 2024
feeling well. no complaints. eager for DC
Objective
Labs:
09/12/24 03:53
09/12/24 03:53
Labs
Hgb 10.2 g/dL (12.0-16.0) L 09/12/24 03:53
Hct 30.7 % (37.0-47.0) L 09/12/24 03:53
Plt Count 235 10^3/uL (130-400) 09/12/24 03:53
PT 12.9 Sec (11.4-14.6) 09/07/24 22:30
INR 0.94 09/07/24 22:30
APTT 26.2 Sec (23.4-35.0) 09/07/24 22:30
Sodium 140 mmol/L (135-145) 09/12/24 03:53
Potassium 3.9 mmol/L (3.5-5.1) 09/12/24 03:53
BUN 15 mg/dl (7-17) 09/12/24 03:53
Creatinine 0.6 mg/dL (0.6-1.0) 09/12/24 03:53
Glucose 105 mg/dl (70-99) H 09/12/24 03:53
Vital Signs and I&O:
Vital Signs
Temp Pulse Resp BP Pulse Ox
98.6 F 87 16 137/90 95
09/12/24 08:05 09/12/24 08:04 09/12/24 08:05 09/12/24 08:04 09/12/24 03:46
Vital Signs
Temp Pulse Resp BP Pulse Ox
98.6 F 87 16 137/90 95
09/12/24 08:05 09/12/24 08:04 09/12/24 08:05 09/12/24 08:04 11/22/24 03:46
Intake & Output
09/10/24 09/11/24 09/12/24 09/13/24
07:59 07:59 07:59 07:59
Intake Total 100 / 100 960 / 960 720 / 720
Output Total 200 / 200
Balance 100 / 100 960 / 960 520 / 520
Physical Exam
Physical Exam
GEN: No distress, awake, alert, oriented x3. sitting in chair
HEENT: supple, anicteric, mmm, eomi
LUNGS: CTA B/L, no wheezes/rales
CV: Reg, S1/S2, 1/6 syst LSB
ABD: soft, BS+, NT/ND
EXT: No cyanosis, clubbing, edema
NEURO: Gross non-focal
SKIN: Warm, pink, dry. No rash. healing chest ecchymoses and facial ecchymoses
[2024-09-12 09:56] VITALS: BP 112/61
[2024-09-12 10:29] VITALS: BP 112/61; PULSE 74
--- NOTE | 2024-09-12 10:51 | CM ---
Chart reviewed. Patient is independent of ADLS, lives with her in a 2 STH, 2 CANDELARIA, 0 DME. Patient recently had braces made for her by physiatry. Patient is interested in RW. Hospitalist placed a script on her chart. PT notified of RW.
Plan is for the patient to return [facility] with [facility].
[2024-09-12 11:06] VITALS: BP 110/68
--- NOTE | 2024-09-12 11:17 | W.PN.HOSP.TC ---
Addendum entered and electronically signed by Boris Shelley MD 09/12/24 16:43:
[id number]
Original Note:
Today's Communication/Plan
-
eliquis, plavix , statin
ACEI, BB
Smoking Cessation- nicotine patch
F/u Neuro, PCP, Cards outpatient
Assessment / Plan
Assessment / Plan
GEN: No distress, awake, alert, oriented x3
HEENT: supple, anicteric, mmm, eomi
LUNGS: CTA B/L, no wheezes
CV: Reg, S1/S2, 2/6 murmur
ABD: soft, BS+, NT/ND
EXT: No cyanosis, clubbing, edema
NEURO: Gross non-focal
SKIN: Warm, pink, dry. No rash. Facial ecchymoses
74 y/o female with PMHX of tobacco abuse, SVT, chronic back pain for which she receives local injections, diastolic dysfunction and hypertension presenting with abrupt onset chest pressure, nausea and vomiting presented with Acute [place], s/p PCI and
complicated with cardiogenic shock. Patient was weaned off pressors although became confused. Medical consulted and will admit patient to our service.
PLAN:
#Acute metabolic encephalopathy
� Most likely delirium, improving; + small nonhemorrhagic acute/subacute infarct in the left parietal lobe/posterior centrum semiovale region
� UA negative
� Neurology consulted by cardiology
� Avoid benzodiazepines, opiates if possible
�Thiamine�avoid ELEVATOR INSPECTOR depressants
-eliquis, plavix , statin
#Leukocytosis
� I suspect secondary to acute stress
� Continue to monitor fever curve, white count
� Resolved
#CVA
� Follow-up neurology outpatient
� Already on DAPT, although now with CVA switching over to Plavix and Eliquis
� Statin
�Outpatient programmer analyst
#Hyperbilirubinemia
#Transaminitis
� right upper quadrant sonogram with equivocal findings
� I suspect this is due to recent shock
� No right upper quadrant tenderness, refused HIDA scan
� Doubt this is acute cholecystitis with recent shock, no right upper quadrant tenderness and improving LFTs; can hold off on HIDA scan at this time
� Follow-up hepatitis panel
-F/u CMP outpatient with PCP
#Elevated troponin
#Acute AL/STEMI
#Hyperlipidemia
-continue statin
� Switch Brilinta to Plavix
� Start Eliquis tomorrow morning
-follow on tele. Will need outpatient programmer analyst
-Increase Toprol
-ACEI
#Complete heart block
� Was on dobutamine, pacing
� Follow cardiology recommendations
- Now can go back on beta-miguel
- Will need outpatient programmer analyst upon discontinuation
#Hypokalemia
� Monitor and replete
#PSVT
� Chronic
� On beta-miguel
-with CVA - holter monitor outpt
#Hypertension
� Continue beta-miguel, ACEI
#Tobacco use
� Chronic
� Encouraged to quit
#DVT ppx
HSQ
More than 30 minutes spent in discharge including
Final examination of the patient
Summarizing hospital stay
Instructions for continuing care to all relevant caregivers
Preparation of discharge records, prescriptions, and referral forms
Total time spent (38 in minutes):
Anticipated Discharge: Today
Subjective/Interval History
-
Date of Service: September 12, 2024
No acute events
Objective Data
-
Labs:
Laboratory Results
09/12/24
03:53
WBC 8.9
Hgb 10.2 L
Hct 30.7 L
Plt Count 235
Sodium 140
Potassium 3.9
Chloride 105
Carbon Dioxide 26
BUN 15
Creatinine 0.6
Glucose 105 H
Calcium 9.0
Total Bilirubin 1.1
AST 42 H
ALT 51 H
Alkaline Phosphatase 94
Vital Signs:
Vital Signs
Temp Pulse Resp BP Pulse Ox
98.6 F 87 16 137/90 97
09/12/24 08:05 09/12/24 08:04 09/12/24 08:05 09/12/24 08:04 09/12/24 08:00
I&O
09/11/24 09/12/24 09/13/24
06:59 06:59 06:59
Intake Total 960 / 960 720 / 720
Output Total 200 / 200
Balance 960 / 960 520 / 520
Review of Systems
-
History Source: Patient
All other systems: Not reviewed unless documented
Physical Exam
-
General: No Apparent Distress
HEENT: PERRLA
Respiratory: Clear to Auscultation; Negative Wheezes
Cardiac: Regular Rhythm and S1/S2
Musculoskeletal: No Edema
Skin: Warm and Dry; Negative Rash
Neuro: AO x 3
Psych: Calm
Data Reviewed
-
Diagnostic Radiology: Report Reviewed by me
Ultrasound: Image personally visualized and interpreted
Labs: Labs Reviewed by me
--- NOTE | 2024-09-12 11:22 | W.DS.TRANS ---
DC Summary - Guide Plant
-
Discharge Instructions:
Sleep Apnea Risk Intermediate
Discharge Diagnosis/Procedures
#Acute metabolic encephalopathy
#Elevated troponin
#Acute DC/STEMI
#CVA
Diet Low Cholesterol,Low Fat
Activity Other activity
Additional Activity no heavy lifting greater than 10 pounds for 1
week!
Driving Restrictions No driving for 24 hours
Blood Work CMP in 1 week
Other Services Cardiac Rehab,VN
Instructions:
Stand-Alone Forms: DC Instructions- Cath/EP Lab
Changes to Home Medications: Yes
Discharge Medications:
DC Medications w/original date entered in [employer]
oxycodone 5 mg tablet 5 mg PO Q6HPRN PRN mod pain #10 tabs 02/08/23
apixaban 5 mg tablet (Eliquis) 5 mg PO BID #60 tabs 09/12/24
atorvastatin 80 mg tablet 80 mg PO QPM #30 tabs 09/12/24
clopidogrel 75 mg tablet 75 mg PO DAILY #30 tabs 09/12/24
lisinopril 2.5 mg tablet 2.5 mg PO DAILY #30 tabs 09/12/24
metoprolol succinate 25 mg tablet,extended release 24 hr 25 mg PO BID 30 days #60 tabs 09/12/24
nicotine 14 mg/24 hr daily transdermal patch 14 mg transdermal DAILY #28 ea 09/12/24
Home Medication Changes
apixaban 5 mg tablet (Eliquis) 5 mg PO BID #60 tabs 09/12/24
atorvastatin 80 mg tablet 80 mg PO QPM #30 tabs 09/12/24
clopidogrel 75 mg tablet 75 mg PO DAILY #30 tabs 09/12/24
lisinopril 2.5 mg tablet 2.5 mg PO DAILY #30 tabs 09/12/24
metoprolol succinate 25 mg tablet,extended release 24 hr 25 mg PO BID 30 days #60 tabs 09/12/24
nicotine 14 mg/24 hr daily transdermal patch 14 mg transdermal DAILY #28 ea 09/12/24
Pending Results: No
[2024-09-12 12:14] VITALS: BP 110/68; PULSE 73
--- NOTE | 2024-09-12 13:20 | PTCARENOTE ---
Pt received this am with no c/o of any chest pain, sob or lightheadedness. Assisted oob to the chair and the bathroom. Gait steady with the walker. Pt tolerated oob for 3 hours. Pt discharged to home with her . Discharge instructions given
and reviewed with pt and her with good understanding.
[2024-09-12 15:36] LABS: Hepatitis B Surface Antibody Negative
[2024-09-12 15:43] LABS: Hepatitis A IgM Antibody Negative (Negative); Hepatitis B Core Ab, IgM Negative (Negative)
== END 2024-09-12 13:48 | disposition home health service (06) | DRG 321 ==
LOC: IVU 23:59
PROVIDERS: Internal Medicine Cardiovascular Disease; ADMITTING PHYSICIAN Internal Medicine Cardiovascular Disease; ATTENDING PHYSICIAN Internal Medicine; CONSULT PHYSICIAN Psychiatry & Neurology Neurology; EMERGENCY PHYSICIAN Emergency Medicine
PROC: 02C03ZZ Extirpation of Matter from Coronary Artery, One Artery, Percutaneous Approach (ICD-10-PCS; 2024-09-07)
PROC: B2111ZZ Fluoroscopy of Multiple Coronary Arteries using Low Osmolar Contrast (ICD-10-PCS; 2024-09-07)
PROC: 027034Z Dilation of Coronary Artery, One Artery with Drug-eluting Intraluminal Device, Percutaneous Approach (ICD-10-PCS; 2024-09-07)
PROC: 4A023N7 Measurement of Cardiac Sampling and Pressure, Left Heart, Percutaneous Approach (ICD-10-PCS; 2024-09-07)
PROC: 5A1223Z Performance of Cardiac Pacing, Continuous (ICD-10-PCS; 2024-09-07)
PROC: B41F1ZZ Fluoroscopy of Right Lower Extremity Arteries using Low Osmolar Contrast (ICD-10-PCS; 2024-09-07)
DX: I21.19 ST elevation (STEMI) myocardial infarction involving other coronary artery of inferior wall (principal); G93.41 Metabolic encephalopathy; R57.0 Cardiogenic shock; I63.89 Other cerebral infarction; I47.10 Supraventricular tachycardia, unspecified; I44.2 Atrioventricular block, complete; E78.5 Hyperlipidemia, unspecified; I10 Essential (primary) hypertension; I25.10 Atherosclerotic heart disease of native coronary artery without angina pectoris; R00.1 Bradycardia, unspecified; R74.01 Elevation of levels of liver transaminase levels; D72.829 Elevated white blood cell count, unspecified; R73.03 Prediabetes; E87.6 Hypokalemia; I48.0 Paroxysmal atrial fibrillation; I70.201 Unspecified atherosclerosis of native arteries of extremities, right leg; I77.1 Stricture of artery; F17.210 Nicotine dependence, cigarettes, uncomplicated; G89.29 Other chronic pain; M54.9 Dorsalgia, unspecified; M19.90 Unspecified osteoarthritis, unspecified site; F41.9 Anxiety disorder, unspecified
CPT/HCPCS: 70450; 70551; 71045; 76700; 80048; 80053; 80061; 80306; 81003; 81015; 82140; 82248; 82607; 82977; 83036; 83735; 83970; 84484; 85025; 85027; 85610; 85730; 86705; 86706; 86709; 86803; 86850; 86900; 86901; 87340; 87389; 93005; 93306; 93458; 97116; 97162; 97167; 97530; 97535; 99285; C1725; C1769; C1874; C1894; C9606; J1327; Q9967

== ENCOUNTER 2025-01-08 12:09 | Inpatient (IN) | payer MEDICARE, OTHER, SELFPAY ==
[2025-01-07 17:55] VITALS: BP 190/115
--- NOTE | 2025-01-07 18:28 | ED.GENMED ---
History of Present Illness
General
Chief Complaint: Fall
Source: patient and spouse
Exam Limitations: none
Time Seen by Provider: 01/07/25 18:10
History of Present Illness
History of Present Illness:
75yoF with a history of coronary artery disease s/p PCI in August 2024, atrial fibrillation, hypertension, and hyperlipidemia presenting via EMS for evaluation after a fall yesterday. Patient fell around 7 PM last night. She does not recall what
exactly happened. She denies any preceding dizziness, chest pain, shortness of breath, palpitations. Her heard a thump and found her face forward on the steps. She was awake when found her and she does not believe she lost
consciousness. About 15 to 20 minutes later, she had several episodes of vomiting. Patient has been having significant low back pain since the fall and is having difficulty ambulating because of her pain. She denies any headache, neck pain,
dizziness, visual changes, abdominal pain, shortness of breath, pleuritic pain. No urinary incontinence, urinary retention, saddle anesthesia, or paresthesias. She does have a history of low back issues and was previously receiving steroid
injections by pain management. Patient is currently taking Eliquis and Plavix.
Past History
Past History
ED Past Medical History: HTN
Social History
Personal:
Living: with family
Employment: Not employed
Phy Exam
General Physical Exam
General Presentation: well appearing and no apparent distress
General age: appears stated age
General Skin: warm
General Habitus: normal and elderly
General Mental: alert
ENT Exam
ENT Exam: normocephalic and other (No external signs of head trauma. No cervical spine tenderness. )
Eye Exam
Eye Exam: PERRL
Cardiovascular Exam
Cardiovascular Exam: regular rate/rhythm
Pulmonary Exam
Pulmonary Exam: lungs clear, no respiratory distress, no rales, chest non tender, no crackles and no rhonchi
Gastrointestinal Exam
Gastrointestinal Exam: non tender, soft and non distended
Neurological Exam
Neurological Exam: alert
Ramo Coma Scale
Eye Opening: Spontaneous
Verbal Response: Oriented
Motor Response: Obeys Commands
GCS Total Score: 15
Musculoskeletal Exam
Musculoskeletal Exam: other (+Lumbar spine tenderness. No step-offs or skin changes. Small contusion to the posterior R upper arm.)
Skin Exam
Skin Exam: normal color and warm/dry
Psychiatric Exam
Psychiatric Exam: normal mood/affect
Course
Orders/Labs/Results
Orders:
Orders
01/07/25 Breakfast
Cholesterol Lowering
At Your Request: Non-Participating
Does patient need a safe tray?: No
Cholesterol Lowering: Sodium, 2 Gram
01/07/25 18:26
CT Cervical Spine W/o Iv Contr Urgent
Comment:
Reason For Exam: fall, LOC
CT Lumbar Spine W/o Iv Contras Urgent
Comment:
Reason For Exam: fall, low back pain
Cardiac Monitoring- Treatment ONCE
Oxycodone [Roxicodone] 5 mg PO NOW STA
01/07/25 18:27
Electrocardiogram (*1) Urgent
Reason for Study: Other
Other Reason for Exam: fall
CT Head W/o Iv Contrast Urgent
Comment:
Reason For Exam: fall, LOC
EKG- Treatment ONCE
CR Chest - 2 Views Urgent
Comment:
Reason For Exam: cough
01/07/25 18:47
Complete Blood Count/With Diff Urgent
Comprehensive Metabolic Panel Urgent
PTT Urgent
Prothrombin Time Urgent
Troponin I Urgent
01/07/25 20:36
COVID-19 Antigen Urgent
Source: Nasal Swab
Influenza A+B Rapid Molecular Urgent
KIRK Source: Nasal Swab
Specimen Description:
01/07/25 21:46
Admit/Transfer Patient As Directed
Co-Sign Provider:
Level of Care: Observation services
Assign to:: Telemetry
Physician / Group: hernandez
Diagnosis: T12 compression fracture
Reason for Telemetry: Arrhythmia
Date to Stop Telemetry: 01/10/25
Time to Stop Telemetry: 11:00
Reason for Hospitalization: T12 compression fracture
sacral fracture
01/07/25 21:47
PRN Pain Medication Management As Directed
May give lesser potent ordered pain med per pt: Yes
preference::
Protocol:: Medication orders for pain may be administered in a
manner that supports deferring to patient preference
when the pt is:
- Requesting an ordered lesser potent pain medication.
Least to most potent pain medications are defined
as: acetaminophen < NSAID < tramadol < opioids
(morphine, oxycodone, hydromorphone).
- Requesting a lesser dose of the same medication IF
ORDERED.
- Requesting a less intrusive route of administration
if both routes are prescribed by the provider (PO <
IV).
01/07/25 21:48
Code Status As Directed
Resuscitation Status: Full Code
01/07/25 22:32
Acetaminophen [Tylenol] 1,000 mg PO TID
Alprazolam [Xanax] 0.25 mg PO BIDPRN PRN
Bisacodyl [Dulcolax] 10 mg RECTAL D51SDNP PRN
Docusate W/Senna [Senokot-S] 1 tablet PO BIDPRN PRN
Oxycodone/Acetaminophen [Percocet 5/325] 1 tablet PO Q4HPRN PRN
Polyethylene Glycol Powder [Miralax] 17 grams PO DAILYPRN PRN
01/07/25 22:32
Activity As Directed
Activity Level: As Tolerated
Vital Signs As Directed
Frequency: Per unit guidelines
Ot Eval And Treat Routine
Pt Eval And Treat Routine
Activity Level: As Tolerated
DX Deep Vein Thrombosis Video Routine
01/07/25 22:38
HYDROmorphone [Dilaudid] 0.25 mg IV Q4HPRN PRN
01/08/25 08:00
Apixaban [Eliquis] 5 mg PO BID
Cholecalciferol (Vitamin D3) [VITAMIN D3 (cholecalciferol)] 50 mcg PO DAILY
Clopidogrel Bisulfate [Plavix] 75 mg PO DAILY
Heparin 5,000 units SC Q12
Lisinopril [Zestril] 2.5 mg PO DAILY
Metoprolol Xl [Toprol Xl] 25 mg PO BID@0800,1999
01/08/25 18:00
Atorvastatin [Lipitor] 80 mg PO QPM
01/10/25 11:00
DC Protocol for Telemetry ONCE
Abnormal Lab Results
01/07/25
18:47
RBC 4.06 L 10^6/uL
(4.20-5.40)
Hct 36.4 L %
(37.0-47.0)
Absolute Neuts (auto) 7.0 H 10^3/uL
(1.4-6.5)
Absolute Lymphs (auto) 1.1 L 10^3/uL
(1.2-3.4)
Neutrophils % 80.6 H %
(42.2-75.2)
Lymphocytes % 12.8 L %
(20.5-51.1)
PT 15.7 H Sec
(11.4-14.6)
Glucose 117 H mg/dl
(70-99)
Alkaline Phosphatase 130 H U/L
(38-126)
Total Protein 6.1 L g/dl
(6.3-8.2)
01/07/25 18:47
01/07/25 18:47
Vital Signs
Initial and Last Documented VS:
Initial Vital Signs
Temp Pulse Resp BP Pulse Ox
98.5 F 73 18 190/115 96
01/07/25 17:55 01/07/25 17:55 01/07/25 17:55 01/07/25 17:55 01/07/25 17:55
Last Documented Vital Signs
Temp Pulse Resp BP Pulse Ox
98.3 F 75 20 204/94 96
01/07/25 22:46 01/07/25 23:11 01/07/25 22:46 01/07/25 23:11 01/07/25 22:46
MDM/Problems Addressed
Differential Diagnosis Includes:
75yoF here after a fall last night. She does not recall the incident but does not believe she lost consciousness. C/o low back pain since the fall and is having difficulty ambulating. No incontinence or saddle anesthesia. She is hypertensive with
otherwise normal vitals. She is non-toxic appearing. There is lumbar spine tenderness without step-offs. Differential diagnosis includes but is not limited to: soft tissue injury, fracture, closed head injury
Initial ED plan: Check cardiac labs, EKG, CXR, CT head, CT cervical spine, and CT lumbar spine. Percocet for pain.
*EKG
Interpreted by ED Provider?: Yes
EKG Intrepretation Date: 01/07/25
Heart Rate: 61
Rate: normal
Rhythm: sinus
Newell: normal axis
Interval: normal interval
QRS Pattern: normal QRS
Ischemia: T-wave inversion (Inferolateral leads)
*Critical Care Note
Total Time (30-74mins, 75-104mins- exclusive of procedures): Not Applicable
Update Note
Update Note:
Labs overall unremarkable. EKG shows T wave inversions in inferolateral leads which was also present on prior EKG. Troponin within normal limits. Has been requesting viral testing which was ordered. She did test positive for influenza B.
Imaging shows a T12 compression fracture as well as a subtle sacral fracture. Patient unable to ambulate due to her pain. Will admit for PT/OT and further management.
ED Attending Note
-
Portions of this chart may have been created with voice recognition software.� Occasional wrong word or��sound alike� substitutions may have occurred due to the inherent limitations of voice recognition software.
Discharge Plan
Departure
Patient Disposition: Admit
Date of Disposition: 01/07/25
Time of Disposition: 21:27
Presentation/result/management discussed w/ accepting MD/DO: Hospitalist
Discharge Problem:
T12 compression fracture, Closed sacral fracture, Influenza B
Interventions
Interventions:
*Risk Screen - Suicide Last Done: 01/07/25 22:40
*General Assessment Last Done: 01/07/25 17:55
*Neglect/Abuse Screening Last Done: 01/07/25 17:55
*ED- Fall Risk Assessment Last Done: 01/07/25 17:55
*ED COVID-19 Vaccine History Last Done: 01/07/25 22:40
*Nursing Disposition Last Done: 01/07/25 22:26
ED-Musculoskeletal Assessment Last Done: 01/07/25 19:06
ED- Neurological Assessment Last Done: 01/07/25 19:06
ED-Skin Assessment Last Done: 01/07/25 19:06
Discharge Date and Time
Discharge Date/Time: 01/07/25 22:27
[2025-01-07 18:51] VITALS: BP 171/91
[2025-01-07] MEDS: ROXICODONE 5 MG PO (18:54)
[2025-01-07 19:00] VITALS: BP 187/94
[2025-01-07 19:00] LABS: % Basophils 0.8 % (0-2); % Immature Granulocytes 0.3 % (0-0.5); % Lymphocytes 12.8 % (20.5-51.1); % Monocytes 4.5 % (1.7-9.3); % Neutrophils 80.6 % (42.2-75.2); Absolute Basophils 0.1 10^3/uL (0-0.2); Absolute Eosinophils 0.1 10^3/uL (0-0.7); Absolute Lymphocytes 1.1 10^3/uL (1.2-3.4); Absolute Monocytes 0.4 10^3/uL (0.1-0.6); Hematocrit 36.4 % (37.0-47.0); Hemoglobin 12.5 g/dL (12.0-16.0); Mean Corp Hgb Conc. 34.3 g/dL (33.0-37.0); Mean Corpuscular Hgb 30.8 pg (27.0-31.0); Mean Corpuscular Volume 89.7 fL (81.0-99.0); Mean Platelet Volume 9.2 fL (7.4-10.4); Nucleated Red Blood Cells % 0 %; Platelet Count 225 10^3/uL (130-400); Red Blood Cell Count 4.06 10^6/uL (4.20-5.40); Red Cell Dist. Width 12.8 % (11.5-14.5); White Blood Cell Count 8.7 10^3/uL (4.8-10.8)
[2025-01-07 19:09] LABS: PT 15.7 Sec (11.4-14.6)
[2025-01-07 19:10] LABS: APTT 31.9 Sec (23.4-35.0)
[2025-01-07 19:17] LABS: ALT (SGPT) 17 U/L (0-35); AST (SGOT) 19 U/L (14-36); Albumin 3.6 g/dl (3.5-5.0); Alkaline Phosphatase 130 U/L (38-126); Blood Urea Nitrogen 14 mg/dl (7-17); Calcium 9.2 mg/dl (8.4-10.2); Carbon Dioxide 25 mmol/L (22-30); Chloride 104 mmol/L (98-107); Glucose 117 mg/dl (70-99); Potassium 4.1 mmol/L (3.5-5.1); Sodium 135 mmol/L (135-145); Total Bilirubin 1.2 mg/dl (0.2-1.3); Total Protein 6.1 g/dl (6.3-8.2); eGFR > 60.00
[2025-01-07 19:22] LABS: Troponin I < 0.012 ng/ml
[2025-01-07 20:24] VITALS: BP 174/94
[2025-01-07 21:00] VITALS: BP 184/88
[2025-01-07 21:01] LABS: COVID-19 Antigen Negative (Negative)
--- NOTE | 2025-01-07 21:28 | HPS.HSE ---
Family Physician
-
Family Physician: ROMEO Bran
Chief Complaint
-
fall with low back pain
History of Present Illness
75yoF with a history of coronary artery disease s/p PCI in August 2024, atrial fibrillation, hypertension, and hyperlipidemia presenting via EMS for evaluation after a fall yesterday. Patient fell around 7 PM last night. She does not recall what
exactly happened. She denies any preceding dizziness, chest pain, shortness of breath, palpitations. she is off balance for many years, she is supposed to wear and brace which has not happen yet. Her heard a thump and found her face
forward on the steps. denied hitting her head on the floor. She was awake when found her and she does not believe she lost consciousness. About 15 to 20 minutes later, she had several episodes of vomiting. Patient has been having
significant low back pain since the fall and is having difficulty ambulating because of her pain. She denies any headache, neck pain, dizziness, visual changes, abdominal pain, shortness of breath, pleuritic pain. she has cough for weeks now. she
had an episode of diarrhea two nights ago. denied abdominal pain, denied vomiting.
denied dysuria or hematuria. stated incontinence at times.
CT with T12 compression fracture and sacral fracture.tested positive for influenza B. patient received oxy in ER. admitting for further management.
Medical History
Past Medical History
Past Medical History: Reports Other
Additional Past Medical History:
Hyperlipidemia
MRI
CVA
Anxiety
Hypertension
Past Surgical History: Reports Other
Additional Past Surgical History:
appendectomy
Social History
Tobacco: Smoker
Alcohol: None
Drug: None
Personal:
Living: With Family
Family History
Family History: Not pertinent
Allergies / Home Medications
Allergies reflects when Allergies were last updated in [facility].
Home Medications with original date entered in [facility]
Allergy/Medication List:
Allergies
Allergy/AdvReac Type Severity Reaction Status Date / Time
No Known Allergies Allergy Verified 05/17/20 16:03
Home Medications
apixaban 5 mg tablet (Eliquis) 5 mg PO BID #60 tabs 09/12/24
atorvastatin 80 mg tablet 80 mg PO QPM #30 tabs 09/12/24
clopidogrel 75 mg tablet 75 mg PO DAILY #30 tabs 09/12/24
lisinopril 2.5 mg tablet 2.5 mg PO DAILY #30 tabs 09/12/24
acetaminophen 500 mg tablet 1,000 mg PO Q6HPRN PRN mild pain 01/07/25
alprazolam 0.25 mg tablet 0.25 mg PO BIDPRN PRN anxiety 01/07/25
cholecalciferol (vitamin D3) 50 mcg (2,000 unit) tablet (Vitamin D3) 50 mcg PO DAILY 01/07/25
metoprolol succinate 25 mg tablet,extended release 24 hr 25 mg PO BID@0800,199901/07/25
Review of Systems
-
Constitutional: Reports No Symptoms
EENT: Reports No Symptoms
Respiratory: Reports No Symptoms
Cardiac: Reports No Symptoms
Abdomen/GI: Reports No Symptoms, Vomiting and Diarrhea
: Reports No Symptoms
Musculoskeletal: Reports Other (lower back pain)
Skin: Reports No Symptoms
Neurological: Reports No Symptoms
Endocrine: Reports No Symptoms
Hematologic/Lymphatic: Reports No Symptoms
Psych: Reports No Symptoms
Physical Exam
Vital Signs
Vital Signs
Temp Pulse Resp BP Pulse Ox
98.5 F 67 15 184/88 94
01/07/25 17:55 01/07/25 21:00 01/07/25 21:00 01/07/25 21:00 01/07/25 21:00
Physical Exam
General: Well Developed, Well Nourished and No Apparent Distress
HEENT: NormoCephalic, Moist mucous membranes and Atraumatic
Respiratory: Clear
Cardiac: S1/S2 and Regular Rhythm; No Murmur or Rub
GI: Soft, Non Tender, Non Distended and Normal Bowel Sounds; No Organomegaly
Rectal: Deferred by Provider
Musculoskeletal: No Clubbing, No Cyanosis and No Edema
Skin: No Rash
Neuro: AO x 3 and Nonfocal/grossly intact
Psych: Calm
Laboratory Results
-
01/07/25 18:47
01/07/25 18:47
Laboratory Results
PT 15.7 Sec (11.4-14.6) H 01/07/25 18:47
INR 1.20 01/07/25 18:47
APTT 31.9 Sec (23.4-35.0) 01/07/25 18:47
Total Bilirubin 1.2 mg/dl (0.2-1.3) 01/07/25 18:47
AST 19 U/L (14-36) 01/07/25 18:47
ALT 17 U/L (0-35) 01/07/25 18:47
Alkaline Phosphatase 130 U/L (38-126) H 01/07/25 18:47
Troponin I < 0.012 ng/ml 01/07/25 18:47
Data Reviewed
-
CT Scan: Report Reviewed by me
Lab Data: Labs Reviewed by me
Impression/Plan
-
# Low back pain status post fall
-CT with T12 compression fracture and septal sacral fracture
-PT/OT consult
-Tylenol ATC
-Percocet and Dilaudid prn for pain
-Head CT with no evidence of acute intracranial abnormality. Normal pressure hydrocephalus
-CT cervical spine with no evidence of acute fracture or dislocation
# Influenza B
-Continue to monitor
# CVA
-Plavix continued
# History of [place]/STEMI
# Hyperlipidemia
#Hypertension
� Continue lisinopril
# Anxiety
-Xanax as needed
# A-fib paroxysmal
-EKG within normal sinus rhythm
-Eliquis continued
-Metoprolol continued
# Hyperlipidemia
-Statin continued
#Tobacco use
� Chronic
� Encouraged to quit
-Deny nicotine patch
#DVT ppx
eliquis
# CODE STATUS
-Full code
--- NOTE | 2025-01-07 21:56 | W.PN.UPDATE ---
Update Note
Progress Note Update
Patient seen in conjunction with SUCTION OPERATOR. I agree with the findings of history of physical. I concur with assessment plan listed otherwise.
Briefly, this is a 75-year-old female with past medical history of chronic back pain, atrial fibrillation anticoagulation with Eliquis, recent [place] status post stenting with presenting to the emergency department following a fall at home. According
to spouse patient was walking up a flight of stairs and on the day of she apparently fell. He did not observe it but fall sign. Found the patient on her side facing forward. She was not sprawled forward or backwards. She did not recall striking
her head and spouse did not notice any head bruise or trauma.
When spouse arrived at the patient's side there was no loss of consciousness. He was able to get her up and walking again. Throughout the following day she had pain and difficulty walking so she came to the emergency department. She has had no
other episodes of dizziness or lightheadedness or syncope. She denies any urinary symptoms. She reports back pain without any radiation to the legs. She denies any palpitations.
In the emergency department today she was afebrile, hypertensive to 180/89 with a pulse of 67. CT of the head was negative for any acute intracranial process. ECG was unremarkable. Troponin was negative. She had CT of the pelvis, cervical and
lumbosacral spine. She was found to have a T12 compression fractures with some small sacral fractures. No other acute findings.
CBC was unremarkable stop electrolytes BUN/creatinine were all within the normal range.
Assessment and plan
Unwitnessed fall x 1 day ago, no known loss of consciousness, trauma weak T12 compression fracture lines sacral fractures not requiring surgical intervention.
Fall
-Admitted telemetry
-Monitor on telemetry x 24 hours to rule out arrhythmia
-Orthostatic vital signs
-Check CPK
-No indication for acute hydration at this time, diet as tolerated
T12 compression fracture
-No indication for acute surgery
-Analgesics as indicated including [id number]-ahepo Tylenol with as needed Percocet
-PT evaluation
CAD status post stenting
-Continue aspirin and statin
- check cpk
- continue lisinopril/metoprolol
- has follow up with cardiology in 2 weeks
CHACHO B
- continue eliquis
- continue metoprolol
Code status - Full code
[2025-01-07 22:46] VITALS: BP 200/94
[2025-01-07 22:47] VITALS: BMI 21.1
[2025-01-07 23:03] VITALS: BMI 21.1
[2025-01-07] MEDS: TYLENOL 1000 MG PO (23:11)
[2025-01-07] MEDS: TOPROL XL 25 MG PO (23:11)
[2025-01-07] MEDS: DILAUDID 0.25 MG IV (23:11)
[2025-01-08] VITALS (11 sets, daily range): BP systolic 141–208; BP diastolic 84–118; PULSE 65–77; O2SAT 95; BMI 21.1
--- NOTE | 2025-01-08 00:15 | PTCARENOTE ---
Patients blood pressure upon arrival from ED to [address] [place] [address] was 204/94 (manual). Patient in 8 out of 10 back pain. 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 Missed dose of Metoprolol XL 25 mgs and PRN Dilaudid given at 23:11. Patients blood pressure at 00:33 160/100. Patients
resting in bed with reduced pain in back (12/29).
[2025-01-08] MEDS: DILAUDID 0.25 MG IV ×2 (06:06→10:16)
[2025-01-08] MEDS: ZESTRIL 2.5 MG PO (07:52)
[2025-01-08] MEDS: TOPROL XL 25 MG PO ×2 (07:52→19:52)
[2025-01-08] MEDS: TYLENOL 1000 MG PO ×2 (07:52→17:11)
[2025-01-08] MEDS: PLAVIX 75 MG PO (07:52)
[2025-01-08] MEDS: ELIQUIS 5 MG PO ×2 (07:53→19:52)
[2025-01-08] MEDS: VITAMIN D3 (cholecalciferol) 50 MCG PO (07:53)
[2025-01-08 09:14] LABS: Hepatitis C Antibody Negative (Negative)
[2025-01-08 11:57] LABS: Creatine Phosphokinase 49 U/L (30-135)
[2025-01-08] MEDS: PERCOCET 5/325 1 TABLET PO (12:03)
[2025-01-08] MEDS: TAMIFLU 75 MG PO ×2 (12:03→19:52)
--- NOTE | 2025-01-08 12:14 | CM ---
Addendum entered by Ludy Kumar RN 01/08/25 14:24:
PT/OT recommend skilled rehab. SNF referral placed.
Spoke with Lacy Over[facility]; patient is not eligible for the [facility] Waiver program for SNF, as she is not on their list as having a [facility] PCP.
Spoke with Teri, [facility]; she will review the referral. She is aware that we will need a 3 night stay for SNF for rehab.
Plan follow up with [facility] for acceptance.
Addendum entered by Ludy Kumar RN 01/08/25 12:40:
correction to Dx: T12 compression fracture and sacral fracture. tested positive for influenza B.
Original Note:
Patient who fell with Dx compression Fx. Influenza A +. Receiving Tamiflu, IV Dilaudid prn. CT Chest today. PT/OT evals pending.
Spoke with patient's Xavier;
the patient resides with his in a 2 story house with 3 [address] and 2nd floor bedroom.
She has been mostly oriented at home with a prior episode of confusion after last admission.
The patient was independent in ADLs and ambulation.
DME -RW, [facility]
Prior [facility]
No prior SNF
PCP - Hawk Verma
Pharmacy - [facility]
says if PT/OT recommends rehab he would be interested in a referral to [facility].
Patient is currently Observation status - per KJ Jackson, Inpatient Status is recommended---> Dr Sal notified. Await level of care change for d/c planning.
Plan follow up after seen by PT/OT.
--- NOTE | 2025-01-08 12:32 | W.PN.HOSP.TC ---
Addendum entered and electronically signed by Pola Sal DO 01/08/25 14:52:
Lumbar spine CT also shows new subtle fracture involving the anterior cortical margin of the S3 segment, suggesting acute fracture of the anterior margin of the mid sacrum. This would also be related to fall, trauma, osteoporosis.
Original Note:
Today's Communication/Plan
-
Toradol
Lidocaine patch
Increase lisinopril
TLSO back brace
PT/OT
Tamiflu
Assessment / Plan
Assessment / Plan
Gen-AAOx3, NAD
HEENT-NC, AT, anicteric, clear oral mm
Neck-supple
CV-reg, no M, +S1/S2
Lungs-clear B/L
Abd-soft, NT, ND
Ext-no edema
Musculoskeletal-no cyanosis, clubbing
Skin-warm and dry
Neuro-grossly non-focal
Psych-calm, cooperative
Intractable pain syndrome -due to vertebral compression fracture. Currently on opiates, add Toradol, lidocaine patch. Back brace ordered.
T12 vertebral compression fracture -due to trauma from fall and underlying osteoporosis. Will need osteoporosis treatment after discharge.
Acute influenza B infection -start Tamiflu. She is not acutely ill. Does have a mild cough.
Essential hypertension with hypertensive urgency -suspect back pain contributing to uncontrolled blood pressure. Continue analgesics. Increase lisinopril dose.
Right upper lobe lung nodule -1.[address] chest. Concerning for primary lung cancer given her smoking history. Will refer her to pulmonary for further evaluation and possible biopsy. Discussed with patient and .
Paroxysmal atrial fibrillation -continue Eliquis.
Tobacco dependence -patient states she is cutting down. Cessation advised.
Hyperlipidemia -atorvastatin.
CAD -with history of stenting mid-RCA August 2024 after myocardial infarction. Continue Plavix.
History of stroke
Full code
Dispo -PT recommending SNF on discharge.
Patient's updated at the bedside.
Anticipated Discharge: Within 24 hours
Subjective/Interval History
-
Date of Service: January 08, 2025
Patient seen and examined. Complaining of mild cough. Denies shortness of breath.
Objective Data
-
Vital Signs:
Vital Signs
Temp Pulse Resp BP Pulse Ox
99.0 F 70 17 194/107 93
01/08/25 12:14 01/08/25 12:14 01/08/25 12:14 01/08/25 12:14 01/08/25 12:14
I&O
01/07/25 01/08/25 01/09/25
06:59 06:59 06:59
Intake Total 240 / 240
Balance 240 / 240
Review of Systems
-
History Source: Patient
All other systems: Reviewed and negative
[2025-01-08] MEDS: ZESTRIL 5 MG PO (12:37)
--- NOTE | 2025-01-08 13:02 | PTCARENOTE ---
Patient's bp at 197/107, hr:70. Denies chest pain or SOB at this time. Dr. Sal notified and aware. Order received for lisinopril 5mg po now, medication administered as ordered. Plan of care ongoing.
[2025-01-08] MEDS: LIDOCAINE 4% PATCH 1 PATCH TOPICAL (14:07)
--- NOTE | 2025-01-08 14:42 | CON.PUL ---
Consultation
Consultation Request
Date/Time Consultation Requested: 01/08
Date/Time Consultation Performed: 01/08
Reason for Consultation: Abnormal imaging
Medical History
-
History of Present Illness:
History obtained from the patient, at the bedside, reviewing inpatient records. Patient is a 75-year-old female with history of coronary disease status post PCI August 2024, atrial fibrillation, who has been complaining of few weeks of
increasing chest congestion, upper respiratory symptoms. Patient apparently had a presyncopal event, fall but cannot recall details. In fact she denies the fall, admits that it did happen. She denies chest pain, fevers, chills, sweats.
Per ED records, patient had episode of emesis and lower back pain and is having difficulty ambulating because of the pain. This appears to be a chronic problem. She is also lost some weight recently. She is on Eliquis and Plavix therapy. Upon
arrival to [facility], afebrile, pulse 73, breathing at 18, blood pressure 190/115, 96%. EKG with nonspecific changes, positive for influenza B. Imaging also showed sacral fracture and T12 compression fracture. We are asked to comment on
abnormal CT imaging
.
PMH:Hypertension, hyperlipidemia, coronary disease with PCI/stent August 2024, history of stroke, history of appendectomy. Records also suggest atrial fibrillation
Past Medical History
Past Medical History: None (See above)
Past Surgical History: None (See above)
Social History
Tobacco: Smoker (100+ pack-year history of smoking, currently smoking three quarters of a pack)
Alcohol: Occasional
Drug: None
Personal:
Living: With Family
Employment: Retired
Family History
Family History: Other (1 daughter healthy. No siblings. Family history negative for blood clots, lung cancer. Born and raised in [place])
Allergies / Home Medications
Allergies
Allergy/AdvReac Type Severity Reaction Status Date / Time
No Known Allergies Allergy Verified 07/27/20 16:03
Home Medications
�Medication �Instructions �Recorded �Confirmed �Last Taken �Type
apixaban 5 mg tablet (Eliquis) 5 mg PO BID #60 tabs 09/12/24 01/07/25 01/06/25 Rx
atorvastatin 80 mg tablet 80 mg PO QPM #30 tabs 09/12/24 01/07/25 01/06/25 Rx
clopidogrel 75 mg tablet 75 mg PO DAILY #30 tabs 09/12/24 01/07/25 01/06/25 Rx
lisinopril 2.5 mg tablet 2.5 mg PO DAILY #30 tabs 09/12/24 01/07/25 01/06/25 Rx
acetaminophen 500 mg tablet 1,000 mg PO Q6HPRN PRN mild pain 01/07/25 01/07/25 01/07/25 History
alprazolam 0.25 mg tablet 0.25 mg PO BIDPRN PRN anxiety 01/07/25 01/07/25 01/05/25 History
cholecalciferol (vitamin D3) 50 50 mcg PO DAILY Supplement 01/07/25 01/07/25 01/06/25 History
mcg (2,000 unit) tablet (Vitamin
D3)
metoprolol succinate 25 mg 25 mg PO BID@0800,2000 Heart 01/07/25 01/07/25 01/06/25 History
tablet,extended release 24 hr Disease/Condition
Review of Systems
-
All other systems: Negative unless noted
Vitals / Labs / Diagnostic Testing
Vital Signs
Temp Pulse Resp BP Pulse Ox
99.0 F 70 17 197/107 93
01/08/25 12:14 01/08/25 12:37 01/08/25 12:14 01/08/25 12:37 01/08/25 12:14
Lab Data
01/07/25 18:47
01/07/25 18:47
Laboratory Results
01/07/25
18:47
PT 15.7 H
INR 1.20
APTT 31.9
Microbiology
01/07/25 20:36 Nasal Swab Influenza Types A & B (LISA) - Final
Influenza B Positive, NAAT
Diagnostic Testing:
Physical Exam
-
HEENT: Normocephalic
Cardiovascular: S1/S2, Regular Rhythm, Murmur (n), Rub (n) and Peripheral Edema (n)
Respiratory: Wheeze (n), Rales (n), Rhonchi (n) and Non-Labored Respirations
GI: Soft, Non Distended and Non Tender
Neurology: Awake, Alert, Oriented and No Motor Deficits (Able to sit up without assistance)
Skin: Good Color and Other (No clubbing, cyanosis)
General: Comfortable
Assessment
-
75-year-old female with history of cor disease, atrial fibrillation, significant ongoing tobacco history, presents with malaise, nonspecific symptoms, fall. Found to have positive influenza B. Imaging suggested nodule which we are asked to comment
on
Status post fall 01/06/2025
T12 compression fracture, sacral fracture per imaging
Acute influenza B infection
Toxic metabolic encephalopathy, likely secondary to influenza
Possible NPH per CT imaging
1.6 cm right upper lobe nodule per imaging
Conditions present prior to admission
Paroxysmal atrial fibrillation
100+ pack-year history of smoking, ongoing
History of appendicitis with appendectomy 2022
Hypertension/hyperlipidemia
Coronary post RCA stent August 2024
Nonspecific weight loss
History of stroke, per records
Plan/recommendations
At this time, patient appears to be having nonspecific symptoms for few weeks
is present to corroborate
Cough, general chest congestion, URI symptoms, fatigue, malaise
Now with fall, T12 fracture, mild sacral fracture, back pain
CT chest for abnormal imaging confirms right upper lobe nodule. There is no significant adenopathy
Moving forward
Continue with supportive care
Remains on Tamiflu for influenza
Remains on antiplatelet therapy, Eliquis therapy
Head CT without acute findings however there is suggestion of possible normal pressure hydrocephalus.
With regards to right upper lobe nodule, high risk for lung cancer given 100+ pack-year history of smoking
This was reviewed at length with patient and at bedside
At this time given acuity of influenza B and TME, this will need follow-up as outpatient
Would recommend follow-up CT chest in 4 to 6 weeks given the possibility of inflammatory/infectious process
Reviewed multiple prior imagings including cervical imaging and abdominal imaging. Cervical imaging in the past does not image inferior enough
Discussed with patient and risk for lung cancer, benefits of follow-up, early detection given the possibly of early stage cancer and appropriate treatment
Discussed at length with patient absolute importance of tobacco cessation
She does not have any cravings at this time
Discussed behavioral changes. Spent greater than 3 minutes discussing importance of tobacco cessation, benefits of tobacco cessation, methods for cessation
All questions answered
We will follow
--- NOTE | 2025-01-08 16:00 | PTCARENOTE ---
Patient manual bp 180/90. Denies chest pain. . No new orders at this time.
[2025-01-08] MEDS: ZOFRAN 4 MG IV (16:45)
[2025-01-08] MEDS: LIPITOR 80 MG PO (17:11)
[2025-01-08] MEDS: ULTRAM 50 MG PO (19:52)
[2025-01-08] MEDS: TYLENOL PO (21:54)
[2025-01-09] VITALS (9 sets, daily range): BP systolic 112–178; BP diastolic 70–98; PULSE 69–73; O2SAT 94; BMI 21.2
--- NOTE | 2025-01-09 08:43 | W.PN.PUL3 ---
Today's Communication / Plan
-
Continue supportive care for influenza
Recommend CT chest ION (no contrast) in 4-6 weeks with pulmonary follow-up
Information left in chart
We will sign off. Please call with questions
Assessment
-
75-year-old female with history of cor disease, atrial fibrillation, significant ongoing tobacco history, presents with malaise, nonspecific symptoms, fall. Found to have positive influenza B. Imaging suggested nodule which we are asked to comment
on
Status post fall 01/06/2025
T12 compression fracture, sacral fracture per imaging
Acute influenza B infection
Toxic metabolic encephalopathy, likely secondary to influenza
Possible NPH per CT imaging
1.6 cm right upper lobe nodule per imaging
Conditions present prior to admission
Paroxysmal atrial fibrillation
100+ pack-year history of smoking, ongoing
History of appendicitis with appendectomy 2022
Hypertension/hyperlipidemia
Coronary post RCA stent August 2024
Nonspecific weight loss
History of stroke, per records
Plan/recommendations
At this time, patient appears to be having nonspecific symptoms for few weeks
Cough, general chest congestion, URI symptoms, fatigue, malaise
Presently she is without complaints
Status post fall, T12 fracture, mild sacral fracture, back pain
CT chest for abnormal imaging confirms right upper lobe nodule. There is no significant adenopathy
Moving forward
Continue with supportive care
Remains on Tamiflu for influenza
Remains on antiplatelet therapy, Eliquis therapy
Head CT without acute findings however there is suggestion of possible normal pressure hydrocephalus.
With regards to right upper lobe nodule, high risk for lung cancer given 100+ pack-year history of smoking
This was reviewed at length with patient and at bedside on 01/08 and again with patient 01/09
At this time given acuity of influenza B and TME, this will need follow-up as outpatient
Would recommend follow-up CT chest in 4 to 6 weeks given the possibility of inflammatory/infectious process
Patient aware of high risk for lung cancer
Patient aware of risk for increased morbidity and mortality with lung cancer
She is also aware of importance of tobacco cessation
She denies cravings at this time which is encouraging
Follow-up information left in chart
All questions answered
We will sign off. Please call with questions
Subjective Data
-
Date of Service:
Date of Service: January 09, 2025
Subjective:
Patient is without pulmonary complaints. She denies shortness of breath, cough, mopped assist, chest pain.
Objective Data
Data Reviewed
Vital Signs / I&O / Oxygen:
Vital Signs
Temp Pulse Resp BP Pulse Ox
98.4 F 73 16 122/71 93
01/09/25 08:00 01/09/25 08:00 01/09/25 08:00 01/09/25 08:00 01/09/25 08:00
Intake and Output
01/08/25 01/09/25 01/10/25
06:59 06:59 06:59
Intake Total 240 / 240 1110 / 1110
Balance 240 / 240 1110 / 1110
SaO2 93
Physical Exam
General: Comfortable
HEENT: Normocephalic and Anicteric
Cardiovascular: S1-S2, Regular Rhythm and Murmur (n)
Respiratory: Wheeze (n), Crackles (n), Rhonchi (n) and Non-Labored Respirations
GI: Soft, Non Distended and Non Tender
Neurology: Awake, Alert and No Motor Deficits (Able to sit up without assistance)
Skin: Cyanosis (n) and Jaundice (n)
Labs/Micro/Reports
Lab Data
01/07/25 18:47
01/07/25 18:47
Microbiology
01/07/25 20:36 Nasal Swab Influenza Types A & B (LISA) - Final
Influenza B Positive, NAAT
[2025-01-09] MEDS: TOPROL XL 25 MG PO ×2 (09:27→21:42)
[2025-01-09] MEDS: ZESTRIL 10 MG PO (09:27)
[2025-01-09] MEDS: PLAVIX 75 MG PO (09:27)
[2025-01-09] MEDS: VITAMIN D3 (cholecalciferol) 50 MCG PO (09:27)
[2025-01-09] MEDS: TAMIFLU 75 MG PO ×2 (09:27→21:39)
[2025-01-09] MEDS: LIDOCAINE 4% PATCH 1 PATCH TOPICAL (09:28)
[2025-01-09] MEDS: ELIQUIS 5 MG PO ×2 (09:28→21:39)
[2025-01-09] MEDS: TYLENOL 1000 MG PO ×3 (09:28→21:39)
[2025-01-09] MEDS: ULTRAM 50 MG PO (09:29)
--- NOTE | 2025-01-09 12:28 | W.PN.HOSP.TC ---
Today's Communication/Plan
-
Ibuprofen [id number]
Stop IV Dilaudid
Bowel regimen
Continue PT
Assessment / Plan
Assessment / Plan
Gen-AAOx3, NAD
HEENT-NC, AT, anicteric, clear oral mm
Neck-supple
CV-reg, no M, +S1/S2
Lungs-clear B/L
Abd-soft, NT, ND
Ext-no edema
Musculoskeletal-no cyanosis, clubbing
Skin-warm and dry
Neuro-grossly non-focal
Psych-calm, cooperative
Intractable pain syndrome -due to vertebral compression fracture, sacral fracture. Back brace when out of bed. Change Toradol to ibuprofen [id number]. Continue tramadol as needed. Stop IV Dilaudid.
Sacral/T12 vertebral compression fractures -due to trauma from fall and underlying osteoporosis. Will need osteoporosis treatment after discharge. Discussed with patient and .
Acute influenza B infection -continue Tamiflu. She is not acutely ill. Does have a mild cough.
Essential hypertension with hypertensive urgency -urgency resolved. Blood pressure much better with higher dose lisinopril.
Right upper lobe lung nodule -1.[address] chest. Concerning for primary lung cancer given her smoking history. Seen and evaluated by pulmonary service, outpatient follow-up to be arranged.
Paroxysmal atrial fibrillation -continue Eliquis.
Tobacco dependence -patient states she is cutting down. Cessation advised.
Hyperlipidemia -atorvastatin.
CAD -with history of stenting mid-RCA August 2024 after myocardial infarction. Continue Plavix.
History of stroke
Full code
Dispo -PT recommending SNF on discharge. Medically stable for discharge.
Patient's updated at the bedside.
Anticipated Discharge: Within 24 hours
Subjective/Interval History
-
Date of Service: January 09, 2025
Patient seen and examined. Complaining of severe back pain, 8 out of 10.
Objective Data
-
Vital Signs:
Vital Signs
Temp Pulse Resp BP Pulse Ox
98.3 F 70 18 112/70 96
01/09/25 12:00 01/09/25 12:00 01/09/25 12:00 01/09/25 12:00 01/09/25 12:00
I&O
01/08/25 01/09/25 01/10/25
06:59 06:59 06:59
Intake Total 240 / 240 1110 / 1110
Balance 240 / 240 1110 / 1110
Review of Systems
-
History Source: Patient
All other systems: Reviewed and negative
[2025-01-09] MEDS: MIRALAX 17 GRAMS PO (13:09)
[2025-01-09] MEDS: MOTRIN 800 MG PO ×3 (13:09→21:40)
--- NOTE | 2025-01-09 14:24 | CM ---
Spoke with patient and
Spoke with Teri liaison at [facility]
Bed available at [facility] on Sunday
no pre auth
PLAN: [facility]
transportation forms on chart
[2025-01-09] MEDS: LIPITOR 80 MG PO (17:13)
--- NOTE | 2025-01-09 21:36 | W.PN.UPDATE ---
Update Note
Progress Note Update
RN reports that it was reported to him around 1800 that pt was noted BY day RN to have trouble following simple commands (like how to take a pill). When night RN saw pt during shift change reports that pt was noted to have trouble with word
finding. PT does have hx of stroke in aug 2024 (per never followed up with outpt neuro). On plavix and eliquis. This admit pt came in with fall- back pain and pos flu. Has had some TME since admit as well. On my eval pt aax3. WELLS. No
weakness in BUE or BLE. KNows where she is. Who her is. Who president is. When her birthday is. No sensation losses. Only abnormality is when asked year- she states [birth year].
pt sent for CT head: IMPRESSION:
No acute intracranial abnormality.
Stable appearance of the brain compared to the head CT from 01/07/2025. Ventricular dilatation again may be secondary to normal pressure hydrocephalus in the appropriate clinical setting.
NIH:1
Can consider neuro consult in am.
[2025-01-09] MEDS: SENOKOT-S 1 TABLET PO (21:39)
[2025-01-10 03:09] VITALS: BP 158/79
[2025-01-10 07:05] VITALS: BP 138/69
[2025-01-10] MEDS: MIRALAX 17 GRAMS PO (08:29)
[2025-01-10] MEDS: MOTRIN 800 MG PO ×3 (08:30→21:37)
[2025-01-10] MEDS: PLAVIX 75 MG PO (08:30)
[2025-01-10] MEDS: TYLENOL 1000 MG PO ×3 (08:30→21:37)
[2025-01-10] MEDS: TOPROL XL 25 MG PO ×2 (08:31→19:30)
[2025-01-10] MEDS: TAMIFLU 75 MG PO ×2 (08:31→19:30)
[2025-01-10] MEDS: SENOKOT-S 1 TABLET PO ×2 (08:31→19:30)
[2025-01-10] MEDS: ZOFRAN 4 MG IV ×2 (08:35→22:37)
[2025-01-10] MEDS: ZESTRIL 10 MG PO (08:38)
[2025-01-10] MEDS: ELIQUIS 5 MG PO ×2 (08:38→19:30)
[2025-01-10] MEDS: VITAMIN D3 (cholecalciferol) 50 MCG PO (08:38)
[2025-01-10] MEDS: LIDOCAINE 4% PATCH TOPICAL (08:39)
--- NOTE | 2025-01-10 09:43 | W.PN.HOSP.TC ---
Today's Communication/Plan
-
Continue current care
Assessment / Plan
Assessment / Plan
Gen-AAOx3, NAD
HEENT-NC, AT, anicteric, clear oral mm
Neck-supple
CV-reg, no M, +S1/S2
Lungs-clear B/L
Abd-soft, NT, ND
Ext-no edema
Musculoskeletal-no cyanosis, clubbing
Skin-warm and dry
Neuro-grossly non-focal
Psych-calm, cooperative
Intractable pain syndrome -due to vertebral compression fracture, sacral fracture. Back brace when out of bed. Continue ibuprofen [id number]. Continue tramadol as needed. Stopped IV Dilaudid.
Sacral/T12 vertebral compression fractures -due to trauma from fall and underlying osteoporosis. Will need osteoporosis treatment after discharge. Discussed with patient and .
Acute influenza B infection -continue Tamiflu. She is not acutely ill. Does have a mild cough.
Essential hypertension with hypertensive urgency -urgency resolved. Blood pressure much better with higher dose lisinopril.
Right upper lobe lung nodule -1.[address] chest. Concerning for primary lung cancer given her smoking history. Seen and evaluated by pulmonary service, outpatient follow-up to be arranged.
Delirium -mild confusion noted in the hospital. Events overnight noted. CT head unremarkable other than findings of possible NPH. This will require outpatient follow-up with neurology.
Paroxysmal atrial fibrillation -continue Eliquis.
Tobacco dependence -patient states she is cutting down. Cessation advised.
Hyperlipidemia -atorvastatin.
CAD -with history of stenting mid-RCA August 2024 after myocardial infarction. Continue Plavix.
History of stroke
Full code
Dispo -PT recommending SNF on discharge. Medically stable for discharge. Bed available at [facility] on Sunday.
Anticipated Discharge: 24 - 48 hours
Subjective/Interval History
-
Date of Service: January 10, 2025
Patient seen and examined. Complaining of back pain.
Objective Data
-
Vital Signs:
Vital Signs
Temp Pulse Resp BP Pulse Ox
98.6 F 63 16 138/69 98
01/10/25 07:05 01/10/25 08:31 01/10/25 07:05 01/10/25 08:31 01/10/25 07:05
I&O
01/09/25 01/10/25 01/11/25
06:59 06:59 06:59
Intake Total 1110 / 1110 1080 / 1080
Balance 1110 / 1110 1080 / 1080
Review of Systems
-
History Source: Patient
All other systems: Reviewed and negative
[2025-01-10 11:00] VITALS: BP 170/80
[2025-01-10] MEDS: ULTRAM 50 MG PO ×2 (12:11→19:04)
[2025-01-10 15:00] VITALS: BP 116/68
--- NOTE | 2025-01-10 16:18 | PTCARENOTE ---
BP this afternoon was 170/80, PRN pain med administered for 9/10 pain to back, ice pack given, BP at 116/68 afterwards. Pt resting comfortably in bed with at bedside at this time.
[2025-01-10] MEDS: LIPITOR 80 MG PO (17:16)
[2025-01-10 19:27] VITALS: BP 142/85
[2025-01-10 23:21] VITALS: BP 151/87
[2025-01-11 03:12] VITALS: BP 137/83
[2025-01-11 07:05] VITALS: BP 131/66
[2025-01-11] MEDS: TAMIFLU 75 MG PO ×2 (08:46→19:31)
[2025-01-11] MEDS: TYLENOL 1000 MG PO ×3 (08:46→22:05)
[2025-01-11] MEDS: LIDOCAINE 4% PATCH TOPICAL (08:46)
[2025-01-11] MEDS: SENOKOT-S 1 TABLET PO ×2 (08:47→19:31)
[2025-01-11] MEDS: ZESTRIL 10 MG PO (08:47)
[2025-01-11] MEDS: TOPROL XL 25 MG PO ×2 (08:47→19:31)
[2025-01-11] MEDS: VITAMIN D3 (cholecalciferol) 50 MCG PO (08:47)
[2025-01-11] MEDS: PLAVIX 75 MG PO (08:47)
[2025-01-11] MEDS: MOTRIN 800 MG PO (08:47)
[2025-01-11] MEDS: ELIQUIS 5 MG PO ×2 (08:47→19:31)
[2025-01-11] MEDS: MIRALAX 17 GRAMS PO (08:47)
[2025-01-11 09:22] VITALS: BP 145/94; BP 168/85; PULSE 68
[2025-01-11] MEDS: ULTRAM 50 MG PO ×2 (09:44→19:30)
[2025-01-11] MEDS: ZOFRAN 4 MG IV (09:47)
--- NOTE | 2025-01-11 10:31 | PTCARENOTE ---
Addendum entered by Ashley Kovacs RN 01/11/25 17:55:
pt given rectal suppository this afternoon. pt with two bowel movements on this shift for this RN. see worklist for proper documentation.
Original Note:
pt worked with pt and wore back brace. after working with PT pt set up to eat breakfast. verbalizing nausea and 9/10 back pain. prn pain medication, zofran and ice were given. pt given PO bowel regimen this morning. still no BM at this time. pt and
significant other educated on importance of her drinking miralax.
[2025-01-11 11:00] VITALS: BP 116/72
--- NOTE | 2025-01-11 12:15 | W.PN.HOSP.TC ---
Today's Communication/Plan
-
Stop ibuprofen
Assessment / Plan
Assessment / Plan
Gen-AAOx3, NAD
HEENT-NC, AT, anicteric, clear oral mm, mild bleeding from right lateral tongue
Neck-supple
CV-reg, no M, +S1/S2
Lungs-clear B/L
Abd-soft, NT, ND
Ext-no edema
Musculoskeletal-no cyanosis, clubbing
Skin-warm and dry
Neuro-grossly non-focal
Psych-calm, cooperative
Intractable pain syndrome -due to vertebral compression fracture, sacral fracture. Back brace when out of bed. Continue tramadol as needed. Stopped IV Dilaudid. Stop ibuprofen given lack of improvement.
Sacral/T12 vertebral compression fractures -due to trauma from fall and underlying osteoporosis. Will need osteoporosis treatment after discharge. Discussed with patient and .
Acute influenza B infection -continue Tamiflu. She is not acutely ill. Does have a mild cough.
Oral bleeding -suspect due to right lateral tongue laceration, probably from accidentally biting her tongue. Exacerbated by anticoagulation with Eliquis, Plavix. Continue oral care. Stop ibuprofen as above.
Essential hypertension with hypertensive urgency -urgency resolved. Blood pressure much better with higher dose lisinopril.
Right upper lobe lung nodule -1.[address] chest. Concerning for primary lung cancer given her smoking history. Seen and evaluated by pulmonary service, outpatient follow-up to be arranged.
Delirium -mild confusion noted in the hospital. Events overnight noted. CT head unremarkable other than findings of possible NPH. This will require outpatient follow-up with neurology.
Paroxysmal atrial fibrillation -continue Eliquis.
Tobacco dependence -patient states she is cutting down. Cessation advised.
Hyperlipidemia -atorvastatin.
CAD -with history of stenting mid-RCA August 2024 after myocardial infarction. Continue Plavix.
History of stroke
Full code
Dispo -PT recommending SNF on discharge. Medically stable for discharge. Bed available at [facility] on Sunday.
Anticipated Discharge: Within 24 hours
Subjective/Interval History
-
Date of Service: January 11, 2025
Patient seen/examined, complaining of blood in mouth.
Objective Data
-
Vital Signs:
Vital Signs
Temp Pulse Resp BP Pulse Ox
98.7 F 65 18 116/72 96
01/11/25 11:00 01/11/25 11:00 01/11/25 11:00 01/11/25 11:00 01/11/25 11:00
I&O
01/10/25 01/11/25 01/12/25
06:59 06:59 06:59
Intake Total 1080 / 1080 980 / 980
Balance 1080 / 1080 980 / 980
Review of Systems
-
History Source: Patient
All other systems: Reviewed and negative
--- NOTE | 2025-01-11 12:18 | PTCARENOTE ---
patient has been having off and on bleeding in her mouth from a cut on her tongue. she is on anticoags, and shes very dry. RN educated proper hydration and gave oral swabs and a wash cloth for it. a good bit of bleeding with brushing teeth as well.
MD assessed at bedside and was made aware by RN.
[2025-01-11 15:00] VITALS: BP 136/80
[2025-01-11] MEDS: DULCOLAX 10 MG RECTAL (16:40)
[2025-01-11] MEDS: LIPITOR 80 MG PO (17:11)
[2025-01-11 23:08] VITALS: BP 130/72
[2025-01-12 07:00] VITALS: BP 138/76
[2025-01-12] MEDS: ULTRAM 50 MG PO (08:21)
[2025-01-12] MEDS: TYLENOL 1000 MG PO (08:22)
[2025-01-12] MEDS: ELIQUIS 5 MG PO (08:22)
[2025-01-12] MEDS: PLAVIX 75 MG PO (08:22)
[2025-01-12] MEDS: VITAMIN D3 (cholecalciferol) 50 MCG PO (08:22)
[2025-01-12] MEDS: TAMIFLU 75 MG PO (08:22)
[2025-01-12] MEDS: SENOKOT-S 1 TABLET PO (08:22)
[2025-01-12] MEDS: ZESTRIL 10 MG PO (08:22)
[2025-01-12] MEDS: LIDOCAINE 4% PATCH TOPICAL (08:22)
[2025-01-12] MEDS: TOPROL XL 25 MG PO (08:23)
[2025-01-12] MEDS: MIRALAX PO (08:24)
[2025-01-12 11:00] VITALS: BP 128/73; BP 140/74; PULSE 61; O2SAT 96
--- NOTE | 2025-01-12 12:04 | CM ---
Patient seen at bedside.
Spoke with Teri ORDAZ - has isolation bed today
IMM explained & signed
PLAN: [facility]
REPORT #: [phone]
FAX #: [phone]
Transportation forms on chart
--- NOTE | 2025-01-12 12:12 | W.DCSUMMARY ---
Discharge Summary
Discharge Data
Date of Admission: 01/08/25
Date of Discharge: 01/12/25
-
Pending Results: No
Hospital Course
Ms. Saul is a 75-year-old female with medical history of CAD (PCI 08/2024), A-fib (on Eliquis), cigarette smoking, and hypertension who presented for evaluation after a fall at home 1 day prior to arrival. She denied dizziness or syncope but does
report having had balance issues for many years. CT imaging of her brain shows moderate to severe enlargement of the ventricles suggestive of normal pressure hydrocephalus. Discussed these findings with neurology and neurosurgery who recommended
outpatient follow-up for further workup and treatment as necessary. CT imaging of her lumbar spine showed a new compression fracture of the T12 vertebral body and a new fracture of the anterior cortical margin of S3 segment with mild presacral
edema. CT of cervical spine showed no acute abnormalities. She was evaluated by PT/OT who recommended skilled rehab for ongoing therapy after hospital discharge. She should use a back brace when out of bed. She can continue pain control as
needed. She will also need to follow-up with her primary care physician for osteoporosis management after hospital discharge. Of note, she tested positive for influenza B during this admission and was started on Tamiflu. She does have a mild
cough but has not been acutely ill from a respiratory perspective. She will be discharged with instruction to take 1 more dose of Tamiflu to complete a 5-day course. Her home dose of lisinopril was increased to 10 mg daily for better blood
pressure control. She will need to follow-up with her primary care physician for ongoing blood pressure monitoring and dosage adjustments as needed. Also of note, she had a incidental finding of her right upper lobe lung nodule measuring 1.6 cm.
The pulmonology team recommended outpatient monitoring and follow-up. She was advised to discontinue smoking. At time of hospital discharge she was medically stable. She will be discharged to [facility] for ongoing rehab.
Gen-AAOx3, NAD
HEENT-NC, AT, anicteric, clear oral mm
Neck-supple
CV-reg, no M, +S1/S2
Lungs-clear B/L
Abd-soft, NT, ND
Musculoskeletal-no edema, no deformity
Skin-warm and dry
Neuro-grossly non-focal
Psych-calm, cooperative
Discharge Plan
-
Patient Disposition: Fpc/SNF
Discharge Diagnosis/Procedures: Ambulatory dysfunction, T12 fracture, sacral fracture, influenza infection, lung nodule
Condition: Good
Diet: Low Fat and Low Cholesterol
Activity: With assistance and As tolerated
Driving Restrictions: No driving
Bathing Restrictions: None
Activity Restrictions/Additional Instructions:
Ms. Saul is a 75-year-old female with medical history of CAD (PCI 08/2024), A-fib (on Eliquis), cigarette smoking, and hypertension who presented for evaluation after a fall at home 1 day prior to arrival. She denied dizziness or syncope but does
report having had balance issues for many years. CT imaging of her brain shows moderate to severe enlargement of the ventricles suggestive of normal pressure hydrocephalus. Discussed these findings with neurology and neurosurgery who recommended
outpatient follow-up for further workup and treatment as necessary. CT imaging of her lumbar spine showed a new compression fracture of the T12 vertebral body and a new fracture of the anterior cortical margin of S3 segment with mild presacral
edema. CT of cervical spine showed no acute abnormalities. She was evaluated by PT/OT who recommended skilled rehab for ongoing therapy after hospital discharge. She should use a back brace when out of bed. She can continue pain control as
needed. She will also need to follow-up with her primary care physician for osteoporosis management after hospital discharge. Of note, she tested positive for influenza B during this admission and was started on Tamiflu. She does have a mild
cough but has not been acutely ill from a respiratory perspective. She will be discharged with instruction to take 1 more dose of Tamiflu to complete a 5-day course. Her home dose of lisinopril was increased to 10 mg daily for better blood
pressure control. She will need to follow-up with her primary care physician for ongoing blood pressure monitoring and dosage adjustments as needed. Also of note, she had a incidental finding of her right upper lobe lung nodule measuring 1.6 cm.
The pulmonology team recommended outpatient monitoring and follow-up. She was advised to discontinue smoking. At time of hospital discharge she was medically stable. She will be discharged to [facility] for ongoing rehab.
Referrals:
Kofi Arredondo MD [Active] -
([address] chest ION (No contrast) in 5-6 weeks just before visit)
Laura Dee CRNP [Specified Professional Personl] - in two to three weeks (Follow-up with neurology for possible normal pressure hydrocephalus.)
Hawk Verma PA [Family Provider] - in less than 1 week
Prescriptions:
New
sennosides-docusate sodium 8.6-50 mg Tablet
1 tab PO BID 5 Days Qty: 10 0RF
tramadol 50 mg Tablet
50 mg PO Q6HPRN PRN (Reason: severe pain) Qty: 10 0RF
oseltamivir 75 mg Capsule
75 mg PO BID Qty: 1 0RF
Continued
Eliquis 5 mg Tablet
5 mg PO BID Qty: 60 0RF
atorvastatin 80 mg Tablet
80 mg PO QPM Qty: 30 0RF
clopidogrel 75 mg Tablet
75 mg PO DAILY Qty: 30 0RF
acetaminophen 500 mg Tablet
1,000 mg PO Q6HPRN PRN (Reason: mild pain)
alprazolam 0.25 mg Tablet
0.25 mg PO BIDPRN PRN (Reason: anxiety)
metoprolol succinate 25 mg tablet extended release 24 hr
25 mg PO BID@0800,2000
cholecalciferol (vitamin D3) [Vitamin D3] 50 mcg (2,000 unit) Tablet
50 mcg PO DAILY
Changed
lisinopril 2.5 mg Tablet
10 mg PO DAILY Qty: 30 0RF
Discharge Orders:
Discharge Patient (As Directed); Ordered 01/12/25
Ordered By: Clemente Craven
Discharge Date and Time
Print Language: SAMI
[2025-01-12 15:07] VITALS: BP 158/73
== END 2025-01-12 15:58 | DRG 542 ==
LOC: 2 NORTH 12:09
PROVIDERS: Physician Assistant; ADMITTING PHYSICIAN Internal Medicine; ATTENDING PHYSICIAN Internal Medicine; CONSULT PHYSICIAN Internal Medicine Critical Care Medicine; EMERGENCY PHYSICIAN Emergency Medicine; FAMILY PHYSICIAN Physician Assistant
DX: M80.08XA Age-related osteoporosis with current pathological fracture, vertebra(e), initial encounter for fracture (principal); G92.8 Other toxic encephalopathy; G91.2 (Idiopathic) normal pressure hydrocephalus; F05 Delirium due to known physiological condition; D68.32 Hemorrhagic disorder due to extrinsic circulating anticoagulants; M54.50 Low back pain, unspecified; I25.10 Atherosclerotic heart disease of native coronary artery without angina pectoris; E78.5 Hyperlipidemia, unspecified; I48.0 Paroxysmal atrial fibrillation; I10 Essential (primary) hypertension; J10.1 Influenza due to other identified influenza virus with other respiratory manifestations; R26.2 Difficulty in walking, not elsewhere classified; G89.29 Other chronic pain; F41.9 Anxiety disorder, unspecified; R63.4 Abnormal weight loss; F17.200 Nicotine dependence, unspecified, uncomplicated; W10.8XXA Fall (on) (from) other stairs and steps, initial encounter; Y93.01 Activity, walking, marching and hiking; Y92.008 Other place in unspecified non-institutional (private) residence as the place of occurrence of the external cause; R91.1 Solitary pulmonary nodule; I16.0 Hypertensive urgency; S01.512A Laceration without foreign body of oral cavity, initial encounter; X58.XXXA Exposure to other specified factors, initial encounter; Y93.9 Activity, unspecified; Y92.239 Unspecified place in hospital as the place of occurrence of the external cause; Z79.01 Long term (current) use of anticoagulants; Z95.5 Presence of coronary angioplasty implant and graft; Z86.73 Personal history of transient ischemic attack (TIA), and cerebral infarction without residual deficits; Z79.02 Long term (current) use of antithrombotics/antiplatelets; I25.2 Old myocardial infarction; Z68.21 Body mass index [BMI] 21.0-21.9, adult; Z11.52 Encounter for screening for COVID-19; Z90.49 Acquired absence of other specified parts of digestive tract
CPT/HCPCS: 70450; 71046; 71260; 72125; 72131; 80053; 82550; 84484; 85025; 85610; 85730; 86803; 87502; 87811; 93005; 97116; 97163; 97167; 97530; 97535; 99285; 99406; Q9967

== ENCOUNTER 2025-02-09 10:00 | Emergency (ER) | payer MEDICARE, OTHER, SELFPAY ==
[2025-02-09 10:12] VITALS: BMI 21.6
[2025-02-09 10:15] VITALS: BP 143/80
[2025-02-09 10:45] LABS: % Eosinophils 1.1 % (0-6); % Immature Granulocytes 0.2 % (0-0.5); % Lymphocytes 19.7 % (20.5-51.1); % Monocytes 4.4 % (1.7-9.3); % Neutrophils 73.6 % (42.2-75.2); Absolute Basophils 0.1 10^3/uL (0-0.2); Absolute Eosinophils 0.1 10^3/uL (0-0.7); Absolute Lymphocytes 1.2 10^3/uL (1.2-3.4); Absolute Monocytes 0.3 10^3/uL (0.1-0.6); Absolute Neutrophils 4.6 10^3/uL (1.4-6.5); Hematocrit 35.1 % (37.0-47.0); Hemoglobin 11.7 g/dL (12.0-16.0); Mean Corp Hgb Conc. 33.3 g/dL (33.0-37.0); Mean Corpuscular Hgb 30.8 pg (27.0-31.0); Mean Corpuscular Volume 92.4 fL (81.0-99.0); Mean Platelet Volume 9.5 fL (7.4-10.4); Nucleated Red Blood Cells % 0 %; Platelet Count 326 10^3/uL (130-400); Red Cell Dist. Width 13.4 % (11.5-14.5); White Blood Cell Count 6.2 10^3/uL (4.8-10.8)
[2025-02-09 10:46] LABS: Urine Albumin 1+ (Neg - Trace); Urine Bilirubin Negative (Negative); Urine Character Clear (Clear); Urine Color Yellow; Urine Glucose Negative (Negative); Urine Ketone 1+ (Negative); Urine Leukocyte 1+ (Negative); Urine Nitrite Negative (Negative); Urine Occult Blood 1+ (Negative); Urine Urobilinogen Negative (Neg - 1+)
--- NOTE | 2025-02-09 10:51 | ED.GENMED ---
History of Present Illness
General
Chief Complaint: Weakness
Source: patient
Exam Limitations: none
Time Seen by Provider: 02/09/25 10:06
Nursing documentation reviewed up to this point in time: agreed with
History of Present Illness
History of Present Illness:
Patient presents to ED secondary to worsening lower leg weakness and unstable gait over the past 3 days. Patient was discharged from rehab facility 4 days ago, after she was discharged from the hospital secondary to traumatic vertebral fracture
from the fall. Patient denies fever. Denies back pain. Denies urinary or bowel incontinence. Denies loss of sensation of lower legs. Denies trauma. Patient states that she was feeling okay and able to use walker independently, when she was
discharged home. Patient has been eating since being discharged, but has not been drinking as much water. Patient was evaluated by visiting nurse yesterday who also found the patient to be unstable in her feet and recommended patient come to ED
for an evaluation, which patient declined. However, upon waking up this morning, spouse called 911, as he was unable to support patient. Patient denies any symptoms at rest.
Past History
Past History
ED Past Medical History: HTN
Social History
Personal:
Living: with family
Employment: Not employed
Review of Systems
Review of Systems
Allergies reviewed?: Yes
All Other Systems: ROS reviewed and negative except as documented in HPI and ROS
Constitutional: Reports no symptoms; Denies fever
Respiratory: Reports no symptoms
Cardiac: Reports no symptoms
ABD/GI: Reports no symptoms
Musculoskeletal: Reports no symptoms
Skin: Reports no symptoms
Neurological: Reports weakness; Denies dizzy or headache
Phy Exam
Physical Exam
Physical Exam:
Physical Exam
General: no apparent distress, not acutely ill. afebrile
Head: nc/at. eomi
Neck: supple. normal range of motion.
Heart: s1/s2 regular rate and rhythm
Lungs: no acute respiratory distress. clear bilaterally
Abdomen: normal bowel sounds. not tender.
Neuro: alert and oriented x 3. no focal sensory/motor deficit at rest. normal [id number] testing. normal speech
Skin: no rash
Psychiatric: well kept. interactive and cooperative
Extremities: no edema. no calf tenderness.
Course
Orders/Labs/Results
Orders:
Orders
02/09/25 10:11
Electrocardiogram (*1) Urgent
Reason for Study: Fatigue / Weakness
EKG- Treatment ONCE
02/09/25 10:31
Straight Cath As Directed
Frequency: One time now
02/09/25 10:33
CMP [Comprehensive Metabolic Panel] Urgent
Complete Blood Count/With Diff Urgent
Creatine Phosphokinase Urgent
Comment: ADD ON
Magnesium Urgent
Comment: ADD ON
Urinalysis Reflex To Culture Urgent
Date Specimen was Collected: 02/09/25
Time Specimen was Collected: 10:32
Urine Microscopic Reflex Cult Urgent
Urine Culture Urgent
KIRK Source: U
Specimen Description:
Date Specimen was Collected: 02/09/25
Time Specimen was Collected: 10:32
02/09/25 10:51
Add On- LAB Urgent
Tests Added?: Magnesium, CPK
02/09/25 11:02
Orthostatic VS- Treatment ONCE
0.9% Sodium Chloride 500 ml [Nss] 500 ml IV BOLUS
02/09/25 11:43
Physical Therapy Consult [Pt Eval And Treat] Urgent
Activity Level: Ambulate
Abnormal Lab Results
02/09/25
10:33
RBC 3.80 L 10^6/uL
(4.20-5.40)
Hgb 11.7 L g/dL
(12.0-16.0)
Hct 35.1 L %
(37.0-47.0)
Lymphocytes % 19.7 L %
(20.5-51.1)
Glucose 101 H mg/dl
(70-99)
Alkaline Phosphatase 161 H U/L
(38-126)
Urine Ketones 1+ A
(Negative)
Ur Occult Blood Reflex 1+ A
(Negative)
Leukocyte Esterase Rfl 1+ A
(Negative)
Urine Albumin (Reflex) 1+ A
(Neg - Trace)
02/09/25 10:33
02/09/25 10:33
Vital Signs
Initial and Last Documented VS:
Initial Vital Signs
Pulse Ox
99
02/09/25 10:11
Last Documented Vital Signs
Temp Pulse Resp BP Pulse Ox
98.2 F 71 19 143/80 100
02/09/25 10:12 02/09/25 13:30 02/09/25 13:30 02/09/25 10:15 02/09/25 12:00
MDM/Problems Addressed
MDM/Problems Addressed:
Patient remains afebrile, hemodynamically stable, and neurologically intact grossly. However, when evaluated by physical therapy, patient found to be unstable on her feet with unstable gait. Patient unsafe to discharge home.
Patient seen in ED by case management. After discussion, decision made to transfer patient back to rehab facility for further treatment.
*EKG
Interpreted by ED Provider?: Yes
EKG Intrepretation Date: 02/09/25
Heart Rate: 71
Rate: normal
Rhythm: sinus
Ilfeld: normal axis
Ischemia: T-wave inversion (unchanged from 01/13)
*Critical Care Note
Total Time (30-74mins, 75-104mins- exclusive of procedures): Not Applicable
ED Attending Note
-
Portions of this chart may have been created with voice recognition software.� Occasional wrong word or��sound alike� substitutions may have occurred due to the inherent limitations of voice recognition software.
Discharge Plan
Departure
Patient Disposition: Acute Rehab Facility
Date of Disposition: 02/09/25
Time of Disposition: 12:27
Discharge Problem:
Ambulatory dysfunction
Prescriptions:
No Action
Eliquis 5 mg Tablet
5 mg PO BID Qty: 60 0RF
atorvastatin 80 mg Tablet
80 mg PO QPM Qty: 30 0RF
clopidogrel 75 mg Tablet
75 mg PO DAILY Qty: 30 0RF
acetaminophen 500 mg Tablet
1,000 mg PO Q6HPRN PRN (Reason: mild pain)
alprazolam 0.25 mg Tablet
0.25 mg PO BIDPRN PRN (Reason: anxiety)
metoprolol succinate 25 mg tablet extended release 24 hr
25 mg PO BID@0800,2000
cholecalciferol (vitamin D3) [Vitamin D3] 50 mcg (2,000 unit) Tablet
50 mcg PO DAILY
sennosides-docusate sodium 8.6-50 mg Tablet
1 tab PO BID 5 Days Qty: 10 0RF
tramadol 50 mg Tablet
50 mg PO Q6HPRN PRN (Reason: severe pain) Qty: 10 0RF
oseltamivir 75 mg Capsule
75 mg PO BID Qty: 1 0RF
lisinopril 2.5 mg Tablet
10 mg PO DAILY Qty: 30 0RF
Referrals:
Hawk Verma PA [Family Provider] -
Interventions
Interventions:
*Risk Screen - Suicide Last Done: 02/09/25 10:12
*General Assessment Last Done: 02/09/25 10:12
*Neglect/Abuse Screening Last Done: 02/09/25 10:12
*ED- Fall Risk Assessment Last Done: 02/09/25 10:12
*ED COVID-19 Vaccine History Last Done: 02/09/25 10:12
*Nursing Disposition Last Done: 02/09/25 14:12
ED- Cardiac Assessment Last Done: 02/09/25 10:12
ED- Neurological Assessment Last Done: 02/09/25 10:12
ED- Pulmonary Assessment Last Done: 02/09/25 10:12
Discharge Date and Time
Discharge Date/Time: 02/09/25 14:13
Print Language: ROMANSH
[2025-02-09 10:57] LABS: ALT (SGPT) 12 U/L (0-35); AST (SGOT) 19 U/L (14-36); Albumin 3.7 g/dl (3.5-5.0); Alkaline Phosphatase 161 U/L (38-126); Blood Urea Nitrogen 11 mg/dl (7-17); Calcium 9.5 mg/dl (8.4-10.2); Carbon Dioxide 27 mmol/L (22-30); Chloride 105 mmol/L (98-107); Estimated Creatinine Clearance 59 ml/min; Glucose 101 mg/dl (70-99); Sodium 139 mmol/L (135-145); Total Bilirubin 1.2 mg/dl (0.2-1.3); Total Protein 6.3 g/dl (6.3-8.2); eGFR > 60.00
[2025-02-09] MEDS: NSS 500 IV (11:30)
--- NOTE | 2025-02-09 11:38 | CM ---
Addendum entered by Maria A Aragon 02/09/25 12:26:
SNF recs
Pt accepted at [facility] [place]
Spouse and pt in agreement with plan
Discharge Disposition- [facility] [place]
Phone- [phone] Fax- [phone]
Original Note:
ED CM consulted for dc planning
Bedside meeting with pt and spouse
Pt admitted to from 01/08-01/12 and went to [facility] [place] for ST rehab
Was released on Thrs 02/05 and home with VN
They reside in a [address] with [address], full flight to 2nd floor
Pt is typically indep with use of a SPC and WW as needed
AxO with some occasional confusion noted
Per chart review, pt is not eligible for [facility] waiver
If SNF needs on dc, preference is to return to [facility] [place]
Awaiting PT eval
Pt with qualifying stay due to recent SNF stay
Referral to [facility] [place] per [facility]
Admissions/Teri will check on bed availability should SNF be needed
Discharge Disposition- SNF vs home with VN BRIAN
[2025-02-09 11:40] LABS: Creatine Phosphokinase 48 U/L (30-135)
[2025-02-09 11:46] LABS: Urine Mucus Many
[2025-02-09 11:47] LABS: Urine Urothelial Cell 0-2 /LPF (FEW)
[2025-02-09 11:48] LABS: Urine Amorphous Seen
[2025-02-09 11:49] LABS: Urine Red Blood Cell 0-2 /HPF (0-2)
[2025-02-09 11:52] VITALS: BP 172/87; BP 182/96; BP 185/85; PULSE 71; PULSE 77; PULSE 85
== END 2025-02-09 14:13 ==
LOC: EMR 10:00
PROVIDERS: EMERGENCY PHYSICIAN Emergency Medicine; FAMILY PHYSICIAN Physician Assistant
DX: R26.2 Difficulty in walking, not elsewhere classified (principal); R53.1 Weakness; I10 Essential (primary) hypertension
CPT/HCPCS: 99283; 80053; 81003; 81015; 82550; 83735; 85025; 87086; 93005

== ENCOUNTER → 2025-02-12 15:09 | Outpatient (REF) | payer MEDICARE, OTHER, SELFPAY | LOC: RAD 15:09 | PROVIDERS: ATTENDING PHYSICIAN Internal Medicine Critical Care Medicine; FAMILY PHYSICIAN Physician Assistant; REFERRING PHYSICIAN Student in an Organized Health Care Education/Training Program | DX: R91.1 Solitary pulmonary nodule (principal) | CPT/HCPCS: 71250 ==

== ENCOUNTER 2025-03-09 06:09 | Day surgery (SDC) | payer MEDICARE, OTHER, SELFPAY ==
[2025-03-04 11:41] LABS: Hematocrit 36.5 % (37.0-47.0); Hemoglobin 11.6 g/dL (12.0-16.0); Mean Corp Hgb Conc. 31.8 g/dL (33.0-37.0); Mean Corpuscular Hgb 29.4 pg (27.0-31.0); Mean Corpuscular Volume 92.4 fL (81.0-99.0); Mean Platelet Volume 10.2 fL (7.4-10.4); Platelet Count 335 10^3/uL (130-400); Red Blood Cell Count 3.95 10^6/uL (4.20-5.40); Red Cell Dist. Width 12.9 % (11.5-14.5); White Blood Cell Count 6.3 10^3/uL (4.8-10.8)
[2025-03-04 11:59] LABS: APTT 30.4 Sec (23.4-35.0); INR 1.08; PT 14.5 Sec (11.4-14.6)
[2025-03-04 12:26] LABS: Blood Urea Nitrogen 10 mg/dl (7-17); Calcium 9.5 mg/dl (8.4-10.2); Carbon Dioxide 29 mmol/L (22-30); Chloride 109 mmol/L (98-107); Glucose 92 mg/dl (70-99); Potassium 4.1 mmol/L (3.5-5.1); Sodium 144 mmol/L (135-145); eGFR > 60.00
[2025-03-04 13:42] VITALS: BMI 19.6
--- NOTE | 2025-03-04 14:56 | PTCARENOTE ---
Abnormal ECG 03/04/25, reviewed by Dr Bai, no further interventions requested.
== END 2025-03-09 07:00 | disposition home or self-care (01) ==
LOC: SDS 06:09
PROVIDERS: ATTENDING PHYSICIAN Internal Medicine Critical Care Medicine; FAMILY PHYSICIAN Student in an Organized Health Care Education/Training Program
DX: R91.8 Other nonspecific abnormal finding of lung field (principal); Z53.8 Procedure and treatment not carried out for other reasons; R94.31 Abnormal electrocardiogram [ECG] [EKG]; I45.10 Unspecified right bundle-branch block
CPT/HCPCS: 31622; 36415; 80048; 85027; 85610; 85730; 93005

== ENCOUNTER → 2025-05-18 13:59 | Outpatient (REF) | payer MEDICARE, OTHER, SELFPAY | LOC: HWRAD 13:59 | PROVIDERS: ATTENDING PHYSICIAN Nurse Practitioner Family; FAMILY PHYSICIAN Student in an Organized Health Care Education/Training Program | DX: R91.1 Solitary pulmonary nodule (principal) | CPT/HCPCS: 71250 ==

== ENCOUNTER 2025-05-25 06:04 | Day surgery (SDC) | payer MEDICARE, OTHER, SELFPAY ==
[2025-05-20 11:24] LABS: Hematocrit 36.0 % (37.0-47.0); Hemoglobin 11.4 g/dL (12.0-16.0); Mean Corp Hgb Conc. 31.7 g/dL (33.0-37.0); Mean Corpuscular Volume 91.6 fL (81.0-99.0); Platelet Count 381 10^3/uL (130-400); Red Cell Dist. Width 14.8 % (11.5-14.5)
[2025-05-20 11:33] LABS: INR 1.20; PT 15.7 Sec (11.4-14.6)
[2025-05-20 11:34] LABS: APTT 33.6 Sec (23.4-35.0)
[2025-05-20 11:47] LABS: Blood Urea Nitrogen 13 mg/dl (7-17); Calcium 9.7 mg/dl (8.4-10.2); Carbon Dioxide 26 mmol/L (22-30); Chloride 107 mmol/L (98-107); Glucose 93 mg/dl (70-99); Potassium 3.4 mmol/L (3.5-5.1); Sodium 140 mmol/L (135-145); eGFR > 60.00
[2025-05-20 14:10] VITALS: BMI 17.3
--- NOTE | 2025-05-20 15:25 | PTCARENOTE ---
Dr Salazar made aware of abnormal EKG, no further action requested.
[2025-05-25] VITALS (15 sets, daily range): BP systolic 88–131; BP diastolic 51–86; BMI 17.3; BMI 20.2
[2025-05-25] MEDS: VENTOLIN NEBULES 2.5 MG INH (08:43)
[2025-05-25] MEDS: NSS 500 IV (09:19)
== END 2025-05-25 15:15 | disposition home or self-care (01) ==
LOC: SDS 06:04
PROVIDERS: ATTENDING PHYSICIAN Internal Medicine Critical Care Medicine; FAMILY PHYSICIAN Student in an Organized Health Care Education/Training Program
DX: C34.91 Malignant neoplasm of unspecified part of right bronchus or lung (principal); R06.02 Shortness of breath; I25.10 Atherosclerotic heart disease of native coronary artery without angina pectoris; F17.210 Nicotine dependence, cigarettes, uncomplicated; R93.89 Abnormal findings on diagnostic imaging of other specified body structures; I10 Essential (primary) hypertension; Z79.01 Long term (current) use of anticoagulants; Z79.02 Long term (current) use of antithrombotics/antiplatelets; I48.0 Paroxysmal atrial fibrillation
CPT/HCPCS: 31629; 31628; 31624; 31623; 31627; 31654; 31633; 36415; 71045; 76000; 80048; 85027; 85610; 85730; 87015; 87070; 87102; 87116; 87205; 88112; 88173; 88305; 88333; 88341; 88342; 94640; C1887

== ENCOUNTER → 2025-06-11 07:06 | Outpatient (REF) | payer MEDICARE, OTHER, SELFPAY | LOC: MRI 07:06 | PROVIDERS: ATTENDING PHYSICIAN Internal Medicine Critical Care Medicine; FAMILY PHYSICIAN Student in an Organized Health Care Education/Training Program | DX: C34.11 Malignant neoplasm of upper lobe, right bronchus or lung (principal) | CPT/HCPCS: 70553; A9575 ==

== ENCOUNTER → 2025-06-30 12:33 | Outpatient (REF) | payer MEDICARE, OTHER, SELFPAY | LOC: RCS 12:33 | PROVIDERS: ATTENDING PHYSICIAN Internal Medicine Cardiovascular Disease; FAMILY PHYSICIAN Student in an Organized Health Care Education/Training Program | DX: I34.0 Nonrheumatic mitral (valve) insufficiency (principal) | CPT/HCPCS: 93306 ==

== ENCOUNTER → 2025-07-06 11:28 | Outpatient (REF) | payer MEDICARE, OTHER, SELFPAY ==
[2025-07-06 11:37] LABS: Glucose 108 mg/dl (70-99)
== END ==
LOC: PET 11:28
PROVIDERS: ATTENDING PHYSICIAN Internal Medicine Hematology & Oncology
DX: C34.11 Malignant neoplasm of upper lobe, right bronchus or lung (principal); G93.41 Metabolic encephalopathy
CPT/HCPCS: 36415; 82947